=== PATIENT | female | born 1960 | race Caucasian/White ===

== ENCOUNTER 2022-09-21 17:22 | Outpatient (CLI) | payer BC, SELFPAY ==
--- NOTE | ~2022-09-21 | MM_ITS ---
EXAMINATION: MM screening stacy BI w lexus HISTORY: Screening TECHNIQUE: Craniocaudal and mediolateral oblique 3-D tomosynthesis images were obtained and synthetic 2-D images were generated. CAD analysis was submitted and interpreted. COMPARISON: No prior mammogram is available for comparison at this institution. BREAST PARENCHYMAL COMPOSITION: The breasts are extremely dense, which lowers the sensitivity of mamm ography FINDINGS: There is focal asymmetry in the upper outer quadrant of the right breast posteriorly. There are no suspicious masses, calcifications or architectural distortion in the left breast to suggest m alignancy. IMPRESSION: 1. Focal right breast asymmetry. 2. Additional spot compression and mediolateral views with possible follow-up breast ultrasound recom mended. BI-RADS Category 0: Incomplete: Needs additional imaging evaluation. Reviewed, dictated and finalized at location A. NSING DIRECTOR IMPRESSION: 1. Focal right breast asymmetry. 2. Additional spot compression and mediolateral views with possible follow-up b reast ultrasound recommended. BI-RADS Category 0: Incomplete: Needs additional imaging evaluation.
== END 2022-09-21 17:23 | disposition home or self-care (01) ==
PROVIDERS: Visit Provider Family Medicine
DX: Z12.31 Encounter for screening mammogram for malignant neoplasm of breast (principal); R92.8 Other abnormal and inconclusive findings on diagnostic imaging of breast
CPT/HCPCS: 77063; 77067

== ENCOUNTER 2022-11-11 11:20 | Outpatient (CLI) | payer OTHER, SELFPAY ==
--- NOTE | ~2022-11-11 | MMUS_ITS ---
EXAMINATION: MM diagnostic stacy RT w lexus, US breast RT limited HISTORY: Focal asymmetry of the right breast on screening mammogram TECHNIQUE: Additional 3-D tomosynthesis images of the right breast were performed and synthetic 2-D i mages were generated. CAD analysis was submitted and interpreted. High resolution limited right breas t ultrasound was performed. COMPARISON: 09/21/2022 BREAST PARENCHYMAL COMPOSITION: The breasts are heterogeneously dense, which may obscure small masses . FINDINGS: MAMMOGRAPHIC FINDINGS: With spot compression, the focal asymmetry of the posterior third of the upper outer quadrant of the left breast has an appearance consistent with an island of fibroglandular tissue. ULTRASOUND: There appears to be an island of normal fibroglandular tissue in the upper outer quadrant of the [address] in the area of concern on the mammogram. No suspicious cystic or solid mass is identified. IMPRESSION: 1. No mammographic or sonographic evidence of malignancy. 2. Recommend routine screening mammography in one year. BI-RADS Category 1: Negative Reviewed, dictated and finalized at location A. UME CUTTER IMPRESSION: 1. No mammographic or sonographic evidence of malignancy. 2. Recommend routine screening mammography in one year. BI-RADS Category 1: Negative
== END 2022-11-11 11:21 | disposition home or self-care (01) ==
PROVIDERS: Visit Provider Family Medicine
DX: R92.8 Other abnormal and inconclusive findings on diagnostic imaging of breast (principal)
CPT/HCPCS: 76642; 77061; 77065; G0279

== ENCOUNTER 2024-06-12 15:12 | Outpatient (CLI) | payer OTHER, SELFPAY ==
--- NOTE | ~2024-06-12 | MM_ITS ---
EXAMINATION: MM screening stacy BI w lexus HISTORY: Screening TECHNIQUE: Craniocaudal and mediolateral oblique 3-D tomosynthesis images were obtained and synthetic 2-D images were generated. CAD analysis was submitted and interpreted. COMPARISON: Comparison to multiple prior studies sequentially, with oldest reviewed study dated 09/07. BREAST PARENCHYMAL COMPOSITION: Dense: The breasts are extremely dense, which lowers the sensitivity of mammography. FINDINGS: There is no evidence of suspicious mass, calcification, or architectural distortion to sugg est malignancy in either breast. There has been no suspicious interval change. IMPRESSION: 1. No mammographic evidence of malignancy. 2. Recommend routine screening mammography in one year. BI-RADS Category 1: Negative Reviewed, dictated and finalized at location B.
--- NOTE | ~2024-06-12 | DEXA_ITS ---
Bone Density Report Name: ÁNGELA GRAF Age: 63 Sex: Female Ethnicity: White Date of : 1960 Indication: postmenopausal; screening for osteoporosis; height loss; history of glucocorticoids; Referring Provider: ELEN, MARIA D Bronson Study: Bone densitometry was performed. Exam Date: June 12, 2024 Accession number: [id number] Bone Density: Region BMD T-score Z-score Classification AP Spine(L1-L4) 0.716 -3.0 -1.3 Osteoporosis Femoral Neck (Left) 0.609 -2.2 -0.7 Osteopenia Total Hip (Left) 0.701 -2.0 -0.8 Osteopenia Femoral Neck (Right) 0.591 -2.3 -0.9 Osteopenia Total Hip (Right) 0.706 -1.9 -0.8 Osteopenia Total Hip Mean 0.704 -2.0 -0.8 Osteopenia World Health Organization criteria for BMD impression classify patients as: Normal (T-score at or above -1.0), Osteopenia (T-score between -1.0 and -2.5), or Osteoporosis (T-score at or below -2.5). 10-year Fracture Risk: FRAX not reported because: Some T-score for Spine Total or Hip Total or Femoral Neck at or below -2.5 Clinical Information Provided by Patient: Smokes Has taken Glucocorticoids Patient maximum height was 61.5 Menopause Age: 45 No regular weight bearing exercise Drinks caffeinated beverages Onset of menses at age 12 Number of children 3 Impression: The patient has osteoporosis, based on the Total Spine T-score. The patient has risk factors, including: smoking, history of glucocorticoid therapy. Discussion: INCREASED RISK OF FRACTURE. BONE DENSITY IS UNDESIRABLY LOW AT ONE OR MORE SKELETAL SITES, CONSISTENT WITH POSTMENOPAUSAL OSTEOPOROSIS. This patient's lowest T-score meets the World Health Organization's (WHO) criteria for osteoporosis at one or more sites (T-score -2.5 or below). In untreated patients, the risk of osteoporotic fracture increases approximately two-fold for each 1.0 SD decrease in T-score. Low bone density is not the only risk factor for fracture; also consider factors such as patient's age, frailty or poor health, risk of falling, risk of injury, previous osteoporotic fracture, family history of osteoporosis, cigarette smoking, low body weight, etc. Not everyone with low bone mineral density has osteoporosis; osteomalacia and other metabolic bone disorders should also be considered. Patients who have osteoporosis should be evaluated for specific diseases and conditions (secondary causes) that may cause or contribute to bone loss. The [place] Association of Clinical Endocrinologists (AACE) and National Osteoporosis Foundation (NOF) recommend pharmacologic intervention for all postmenopausal women whose T-score is in this range. The patient should follow a healthful lifestyle (good nutrition with adequate calcium and vitamin D, and appropriate weight-bearing exercise). Follow-Up: Consider a repeat BMD and Ve
== END 2024-06-12 15:13 | disposition home or self-care (01) ==
PROVIDERS: PCP Family Medicine; Visit Provider Family Medicine
DX: Z12.31 Encounter for screening mammogram for malignant neoplasm of breast (principal); Z78.0 Asymptomatic menopausal state; M81.0 Age-related osteoporosis without current pathological fracture; M85.852 Other specified disorders of bone density and structure, left thigh; M85.851 Other specified disorders of bone density and structure, right thigh
CPT/HCPCS: 77063; 77067; 77080

== ENCOUNTER 2025-07-02 08:11 | Outpatient (CLI) | payer OTHER, SELFPAY ==
--- NOTE | ~2025-07-02 | CT_ITS ---
EXAMINATION: CT soft tissue neck w con COMPARISON: None HISTORY: Dysphagia TECHNIQUE: Axial images were obtained with IV contrast. Sagittal, coronal reconstruction images were obtained from the axial views. Omnipaque 370, [address] scan performed using dose optimization techniques including the following automated exposure control; adjustment of mA and/or kV; use of iterative reconstruction technique. Automatic exposure control was used to reduce radiation dose. Permanent radiation dose record is archived to PACS. FINDINGS: Visualized brain parenchyma appears unremarkable. Optic globes unremarkable There is no asymmetry of the base of the tongue. There is no thickening of the prevertebral space. There is asymmetry of the aryepiglottic folds. The vocal cords No thyroid nodules. No lymphadenopathy in the anterior superior mediastinum. There is no thickening of the visualized esophagus The parapharyngeal spaces and tonsillar tissue appear unremarkable Parotid glands are unremarkable. Submandibular glands are unremarkable There is no jugulodigastric, posterior cervical or supraclavicular lymphadenopathy. The lung bases are unremarkable No sclerotic or lytic lesions. No significant sinusitis The soft tissues appear unremarkable IMPRESSION: 1. No etiology to explain the patient's symptoms Reviewed, dictated and finalized at location A.
--- OUTSIDE RECORDS SUMMARY | 2025-07-02 08:18 | XMS_ITS | Clinical Summary ---
Author Organization [facility] Address [address] [facility] [place] [address] Care Team Providers Care Instructional Paraprofessional Name Role Phone Unavailable Primary Care Provider Unavailabl e Source Comments [facility] Affiliates and Associated Physician Practices is amultiple site organization consisting of ambulatory clinics and hospital sitesin [place], [place], [place] and [place]. This disclosure is being madepursuant to the Care Everywhere program and may not contain all information available regarding this patient. Last updated 18.[facility] Social History Tobacco Use Types Packs/Day Years Used Date Smoking Tobacco: Never Assessed Comments Unknown Sex and Gender Information Value Date Recorded Sex Assigned at Not on file Legal Sex Female 2:29 PM CDT Gender Identity Not on file Sexual Orientation Not on file Plan of Treatment Health Maintenance Due Date Last Done Comments COLOGUARD (AGES 45-75) - COL ON CA SCREENING 1960 COLON MONITORING 1960 COLONOSCOPY - COLON CA SCREENING 1960 CT COLONOGRAPHY - COLON CA SCREENING 1960 Colorectal Cancer Screening 1960 FIT - COLON CA SCREENING 1960 FLEX SIG - COLON CA SCREENING 1960 LIPID TESTING 1960 MAMMOGRAM 1960 HIV SCREENING 1975 HEPATITIS C SCREENING 09/12/1978 DTAP/TDAP/TD VACCINES (1 - Tdap) 1979 PAP SMEAR 1981 PNEUMOCOCCAL VACCINE 50+ (1 of 1 - PCV) 2010 ZOSTER VACCINE (1 of 2) 2010 COVID-19 VACCINE ( - 2023-2 5 season) 2024 DEPRESSION SCREENING 11/07/2024 INFLUENZA VACCINE (#1) 2025 Respiratory Syncytial Virus (RSV) Vaccine Pt: or over 60 yrs (1 - 1-dose 75+ series) 2035 HEPATITIS B VACCINE Aged Out No longe r eligible based on patient's age to complete this topic HIB VACCINE Aged Out No longer eligi ble based on patient's age to complete this topic HPV VACCINE Aged Out No longer eligi ble based on patient's age to complete this topic MENINGOCOCCAL (Group B) VACC INE SHARED DECISION-MAKING Aged Out No longer eligibl e based on patient's age to complete this topic MENINGOCOCCAL GROUPS A/C/Y/W VACCINE Aged Out No longer eligible b ased on patient's age to complete this topic Insurance [facility]
--- OUTSIDE RECORDS SUMMARY | 2025-07-02 08:18 | XMS_ITS | Encounter Summary ---
Author Organization [facility] Address [address] [place] [address] Care Team Providers Care Assessment Consultant Name Role Phone Unavailable Primary Care Provider Unavailabl e Encounter Details Date Type Department Care Team (Late st Contact Info) Description 03/06/2024 Lab Requisition [facility] - DermPath Lab [address] [facility] [address] [facility] [address] [place] [place] [address] Baylee Caldera MD [address] [facility] [address] [place] [address] Social History Tobacco Use Types Packs/Day Years Used Date Smoking Tobacco: Never Assessed Comments Unknown Sex and Gender Information Value Date Recorded Sex Assigned at Not on file Legal Sex Female 2:29 PM CDT Gender Identity Not on file Sexual Orientation Not on file documented as of this encounter Plan of Treatment Not on file documented as of this encounter Procedures Procedure Name Priority Date/Time Associated Diagnosis Comments DERMATOPATHOLOGY Routine 03/06/2024 2:12 PM CDT documented in this encounter Results * DERMATOPATHOLOGY (03/06/2024 2:12 PM CDT) Case Report Dermatopathology Report Case: [id number] Authorizing Provider: Baylee Caldera MD Collected: 03/06/2024 02:12 PM Ordering Location: [facility] Physician [facility] - Received: 03/07/2024 12:19 PM DermPath Lab Pathologist: Bceka Covarrubias MD Specimen: Skin, left abdomen 12:05 PM CDT DERMATOPATHOLOGY LABORATORY Final Diagnosis Specimen A. SKIN, left abdomen: LENTIGINOUS MELANOCYTIC NEVUS, JUNCTIONAL TYPE, IRRITATED (D22.5) (see microscopic description) 12:05 PM CDT DERMATOPATHOLOGY LABORATORY at 1205 CDT Clinical History R/o MM 4 12:05 PM T DERMATOPATHOLOGY LABORATORY Gross Description Specimen A: Received is one formalin filled container labeled with the patient's name and designated left abdomen. The specimen consists of a shave biopsy measuring 4x2x1 mm. Jar 0. 4 12:05 PM T DERMATOPATHOLOGY LABORATORY Microscopic Description Specimen A. SKIN, left abdomen: This is a junctional nevus. There is melanin pigment in the stratum corneum. There is a lentiginous proliferation of melanocytes between nests of cells along the dermal-epidermal junction, highlighted by MART-1/Melan-A immunohistochemical staining. There is underlying fibroplasia of the papillary dermis. Original and deeper sections were reviewed. (Junctional Anders's Nevus) 4 12:05 PM T DERMATOPATHOLOGY LABORATORY Disclaimer An external and internal positive and negative controls are appropriate for the histochemical, immunohistochemical and immunofluorescence stain(s) in this case (if any), except where stated explicitly. The performance characteristics of the stain(s) cited in this report were developed and its performance characteristic determined by the Dermatopathology Laboratory at [facility], directed by Dr. Gigi Ambrosio. These tests need not be, and therefore are not, approved by the [place] Food and Drug Administration. The tests are used for clinical purposes. Billing Codes Specimen Charges Stain Charges 22474 1 54243 1 4 12:05 PM CDT DERMATOPATHOLOGY LABORATORY Embedded Images 4 12:05 PM CDT DERMATOPATHOLOGY LABORATORY Pathology/Cytolo gy TISSUE SPECIMEN FROM SKIN / Unknown 03/06/2024 2:12 PM CDT 03/07/2024 12:19 PM CDT us Baylee Caldera MD LAB - PATHOLOGY/CYTOLOGY OR DERABLES Final Result DERMATOPATHOLOGY LABORATORY [facility] - Department of Dermatology [address], [address] [phone] documented in this encounter Visit Diagnoses Not on filedocumented in this encounter
--- OUTSIDE RECORDS SUMMARY | 2025-07-02 08:18 | XMS_ITS | Patient Health Record ---
Author Organization [facility] Address [address] [place] [address] Care Team Providers Care Liability Claims Examiner Name Role Phone Elias Coombs Primary Care Provider [phone] Reason For Referral No Information Immunizations Vaccine Route Administration Date Status Comme nts COVID-19 Moderna 1ST IM Intramuscular 12/18/2020 Administered EUA date 0. Screening reviewed and consent signed. Patient tolerated well. COVID-19 Moderna 2nd IM Intramuscular 01/15/2021 Administered EUA given. Celia ent tolerated well. Plan Of Treatment No Information
[2025-07-02 08:37] LABS: Estimated Glomerular Filt Rate > 60
== END 2025-07-02 08:12 | disposition home or self-care (01) ==
PROVIDERS: PCP Nurse Practitioner Family; Visit Provider Nurse Practitioner Family
DX: R13.10 Dysphagia, unspecified (principal); J39.2 Other diseases of pharynx
CPT/HCPCS: 70491; Q9967

== ENCOUNTER 2025-08-12 00:53 | Day surgery (SDC) | payer OTHER, SELFPAY ==
[2025-07-30 10:03] VITALS: BMI 20.8
--- OUTSIDE RECORDS SUMMARY | 2025-08-12 00:57 | XMS_ITS | Patient Health Record ---
Author Organization [facility] Address [address] [place] [address] Care Team Providers Care Industrial Organizational Psychologist Name Role Phone Elias Coombs Primary Care Provider Reason For Referral No Information Immunizations Vaccine Route Administration Date Status Comme nts COVID-19 Moderna 1ST IM Intramuscular 12/18/2020 Administered EUA date 0. Screening reviewed and consent signed. Patient tolerated well. COVID-19 Moderna 2nd IM Intramuscular 01/15/2021 Administered EUA given. Celia ent tolerated well. Plan Of Treatment No Information
--- OUTSIDE RECORDS SUMMARY | 2025-08-12 00:57 | XMS_ITS | Encounter Summary ---
Author Organization [facility] Address [address] [place] [address] Care Team Providers Care Straw Hat Brim Cutter Operator Name Role Phone Unavailable Primary Care Provider Unavailabl e Encounter Details Date Type Department Care Team (Late st Contact Info) Description 03/06/2024 Lab Requisition [facility] - DermPath Lab [address] [facility] [place] [address] Baylee Caldera MD [address] [facility] [address] DEPT [place] [address] Social History Tobacco Use Types Packs/Day Years [...] PM CDT) Case Report Dermatopathology Report Case: [id number] Authorizing Provider: Baylee Caldera MD Collected: 03/06/2024 02:12 PM Ordering Location: [facility] Physician [facility] - Received: 03/07/2024 12:19 PM DermPath Lab Pathologist: Becka Covarrubias MD Specimen: Skin, left abdomen 12:05 [...] characteristic determined by the Dermatopathology Laboratory at [facility], directed by Dr. Gigi Ambrosio. These tests need not be, and therefore are not, approved by the [place] Food and Drug Administration. The tests are used for clinical purposes. Billing Codes Specimen Charges Stain Charges 49576 1 [id number] 1 4 12:05 PM CDT DERMATOPATHOLOGY LABORATORY Embedded Images 4 12:05 PM CDT DERMATOPATHOLOGY LABORATORY Pathology/Cytolo gy TISSUE SPECIMEN FROM SKIN / Unknown 03/06/2024 2:12 PM CDT 03/07/2024 12:19 PM CDT us Baylee Caldera MD LAB - PATHOLOGY/CYTOLOGY OR DERABLES Final Result DERMATOPATHOLOGY LABORATORY [facility] - Department of Dermatology [address] [phone] documented in this encounter Visit Diagnoses Not on filedocumented in this encounter
--- OUTSIDE RECORDS SUMMARY | 2025-08-12 00:58 | XMS_ITS | Data Portability ---
Author Organization RICARDO BERTTianna Yang Address [address] [place] [address] Assessment No assessment recorded. Plan of Treatment Reminders Order Date Submit Date Provider Last Modified By Organization Details Last Modified Time Details Appointments None recorded . Lab CMP, serum or plasma 2017 018 DIANNA ELIZABETH, [address] [place], [place] [address]david Vicente, [address], [place], [address], 8 06:19:49 lipid panel, serum 2017 018 DIANNA [facility], [address] [place], [place] [address]lily Jules, [address], [place], [address], 8 06:19:49 CMP, serum or plasma 2014 015 DIANNA [facility], [address] [place], [place] [address]lily Jules, [address], [place], [address], 6 12:14:30 CBC 2014 015 DIANNA [facility], [address] [place], [place] [address]lily Jules, [address], [place], [address], 6 12:14:29 lipid panel, serum 2014 015 DIANNA [facility], [address] [place], [place] [address]lily Jules, [address], [place], [address], 6 12:14:28 TSH + free T4, serum 2014 015 [facility], [address] [facility] [address], [address], [place], [address], 5 16:33:33 vitamin D, 25-hydro xy, total, serum 2014 015 [facility], [address] [facility], [address], [place], [address], 5 16:33:34 Referral dermatol ogist referral - Pigmente d left ear lesion 2015 016 DIANNA Dali Taylor, [address] , [facility] [address], [place], [address], 6 13:54:[address] referral - colon ca screen/ fm hx colon polyps 2014 016 DIANNA Not available 6 13:33:19 Procedures None recorded . Surgeries None recorded . Imaging LDCT, chest, for lung cancer screenin g 2017 018 [facility] ([facility]), [address] [place], [address], 8 18:15:07 bone density study - screenin g 2014 015 [facility] ([facility]), [address] [place], [address], 5 09:27:20 mammogra m, screenin g 2014 015 [facility] ([facility]), [address] [place], [address], 5 09:27:20 Medication Orders bupropio n HCl SR 150 mg tablet,1 2 hr sustaine d-releas e 2017 018 INTERFACE Not available 8 16:43:25 nicotine 21 mg/24 hr daily transder mal patch 2017 018 INTERFACE Not available 8 16:43:24 ranitidi ne 150 mg tablet 2017 018 INTERFACE [facility], [address] [place], [address], 8 17:54:03 Chantix Starting Month Box 0.5 mg (11)-1 mg (42) tablets in dose pack 2017 018 INTERFACE [facility], [address] [place], [address], 8 17:54:07 Lexapro 10 mg tablet 2015 016 INTERFACE [facility][id number], [address], [place], [place], [id number], 6 15:07:37 zolpidem 10 mg tablet 2015 016 [email or web address] [facility] #[id number], [address], [place], [place], [id number], 6 15:04:28 ergocalc iferol (vitamin D2) 1,250 mcg (50,000 unit) capsule 2015 016 [email or web address] Not available 6 14:15:47 Lexapro 10 mg tablet 2015 016 [email or web address] Not available 6 13:05:45 zolpidem 5 mg tablet 2015 016 Not available 6 13:05:45 trazodon e 50 mg tablet 2014 015 [email or web address] Not available 6 14:15:47 simvasta tin 20 mg tablet 2014 015 INTERFACE Not available 5 15:46:38 simvasta tin 20 mg tablet 2014 015 INTERFACE Not available 5 15:45:56 Lexapro 10 mg tablet 2014 015 INTERFACE Not available 5 15:46:39 Patient TargetsNo targets recorded. Patient InstructionsNo instructions recorded. Reason for Referral colon ca screen/ fm hx colon polyps Referring Physician: Suzi Romero, Internal Medicine, Encounter Date: 10/08/2015 Trauma Nurse Referral for P igmented skin lesion Pigmented left ear lesion Pigmented left ear lesion Referring Physician: Suzi Romero, Internal Medicine, Encounter Date: 12/23/2015 Results Created Date Observation Date Name Description Value Unit Range Abnormal Flag Note LastModifiedBy Organization Detail LastModifiedTime 11/27/19 16 11/28/2015 lipid panel , serum cholesterol, total 163 mg/dL 125-20 0 normal Not Available [facility] [address] [address] [place], [address], 11/28/2015 11:24:15 11/27/19 16 11/28/2015 lipid panel , serum HDL cholesterol 47 mg/dL > or = 46 normal Not Available [facility] [address] [address] [place], [address], 11/28/2015 11:24:15 11/27/19 16 11/28/2015 lipid panel , serum triglyceride s 98 mg/dL <150 normal Not Available [facility] [address] [address] [place], [address], 11/28/2015 11:24:15 11/27/19 16 11/28/2015 lipid panel , serum LDL-choleste rol 96 mg/dL _(mark c) <130 normal Madie able range <100 mg/dL for patie nts with CHD or diabe preston and <70 mg/dL for diabe tic patie nts with known heart disea se. Not Available [facility] [address] [place], [address], 11/28/2015 11:24:15 11/27/19 16 11/28/2015 lipid panel , serum chol/HDLC ratio 3.5 (calc ) < or = 5.0 normal Not Available [address] [address] [place], [address], 11/28/2015 11:24:15 11/27/19 16 11/28/2015 lipid panel , serum non HDL cholesterol 116 mg/dL _(mark c) normal Targe t for non-H DL saqib stero l is 30 mg/dL highe r than LDL saqib stero l targe t. Not Available [address] [address] [address], [place], [address], 11/28/2015 11:24:15 11/27/1911/28/2015 CMP, serum or plasm a glucose 100 mg/dL 65-99 high Fasti ng refer ence inter dulce maria Not Available [address] [address] [place], [address], 11/28/2015 11:24:15 11/27/19 16 11/28/2015 CMP, serum or plasm a urea nitrogen (BUN) 12 mg/dL 7-25 normal Not Available [facility] [address] [address] [place], [address], 11/28/2015 11:24:15 11/27/19 16 11/28/2015 CMP, serum or plasm a creatinine 0.74 mg/dL 0.50-1 .05 normal For patie nts >49 years of age, the refer ence limit for Creat inine is appro ximat min 13% highe r for peopl e ident ified as Afric an-Am april n. Not Available [facility] [address] [address] [place], [address], 11/28/2015 11:24:15 11/27/1911/28/2015 CMP, serum or plasm a eGFR non-afr. tajik 91 mL/mi n/1.7 3m2 > or = 60 normal Not Available [employer] [facility] [address] [address] [place], [address], 11/28/2015 11:24:15 11/27/19 16 11/28/2015 CMP, serum or plasm a eGFR 106 mL/mi n/1.7 3m2 > or = 60 normal Not Available [address], [address], 11/28/2015 11:24:15 11/27/19 16 11/28/2015 CMP, serum or plasm a BUN/creatini ne ratio NOT APPLIC ABLE (calc ) 6-22 Not Available [address], [address], 11/28/2015 11:24:15 11/27/19 16 11/28/2015 CMP, serum or plasm a sodium 137 mmol/ L 135-14 6 normal Not Available [address], [address], 11/28/2015 11:24:15 11/27/19 16 11/28/2015 CMP, serum or plasm a potassium 4.3 mmol/ L 3.5-5. 3 normal Not Available [address], [address], 11/28/2015 11:24:15 11/27/19 16 11/28/2015 CMP, serum or plasm a chloride 105 mmol/ L 98-110 normal Not Available [address], [address], 11/28/2015 11:24:15 11/27/19 16 11/28/2015 CMP, serum or plasm a carbon dioxide 25 mmol/ L 19-30 normal Not Available [address], [address], 11/28/2015 11:24:15 11/27/19 16 11/28/2015 CMP, serum or plasm a calcium 9.4 mg/dL 8.6-10 .4 normal Not Available [employer] [address], [address], 11/28/2015 11:24:15 11/27/19 16 11/28/2015 CMP, serum or plasm a protein, total 6.8 g/dL 6.1-8. 1 normal Not Available [address], [address], 11/28/2015 11:24:15 11/27/19 16 11/28/2015 CMP, serum or plasm a albumin 4.5 g/dL 3.6-5. 1 normal Not Available [address], [address], 11/28/2015 11:24:15 11/27/19 16 11/28/2015 CMP, serum or plasm a globulin 2.3 g/dL_ (calc ) 1.9-3. 7 normal Not Available [address], [address], 11/28/2015 11:24:15 11/27/19 16 11/28/2015 CMP, serum or plasm a albumin/glob ulin ratio 2.0 (calc ) 1.0-2. 5 normal Not Available [address], [address], 11/28/2015 11:24:15 11/27/19 16 11/28/2015 CMP, serum or plasm a bilirubin, total 0.4 mg/dL 0.2-1. 2 normal Not Available [address], [address], 11/28/2015 11:24:15 11/27/19 16 11/28/2015 CMP, serum or plasm a alkaline phosphatase 69 U/L 33-130 normal Not Available [facility] [employer] [address], [address], 11/28/2015 11:24:15 11/27/19 16 11/28/2015 CMP, serum or plasm a AST 18 U/L 10-35 normal Not Available [address], [address], 11/28/2015 11:24:15 11/27/19 16 11/28/2015 CMP, serum or plasm a ALT 12 U/L 6-29 normal Not Available [address], [address], 11/28/2015 11:24:15 11/27/19 16 11/28/2015 CBC white blood cell count 10.2 thous and/u L 3.8-10 .8 normal Not Available [address], [address], 11/28/2015 11:24:15 11/27/19 16 11/28/2015 CBC red blood cell count 3.74 césar on/uL 3.80-5 .10 low Not Available [address], [address], 11/28/2015 11:24:15 11/27/19 16 11/28/2015 CBC hemoglobin 12.2 g/dL 11.7-1 5.5 normal Not Available [address], [address], 11/28/2015 11:24:15 11/27/19 16 11/28/2015 CBC hematocrit 37.1 % 35.0-4 5.0 normal Not Available [address], [address], 11/28/2015 11:24:15 11/27/19 16 11/28/2015 CBC MCV 99.1 fL 80.0-1 00.0 normal Not Available [address], [address], 11/28/2015 11:24:15 11/27/19 16 11/28/2015 CBC MCH 32.7 pg 27.0-3 3.0 normal Not Available [address], [address], 11/28/2015 11:24:15 11/27/19 16 11/28/2015 CBC MCHC 33.0 g/dL 32.0-3 6.0 normal Not Available [address], [address], 11/28/2015 11:24:15 11/27/19 16 11/28/2015 CBC RDW 13.7 % 11.0-1 5.0 normal Not Available [address], [address], 11/28/2015 11:24:15 11/27/19 16 11/28/2015 CBC platelet count 324 thous and/u L 140-40 0 normal Not Available [address], [address], 11/28/2015 11:24:15 11/27/19 16 11/28/2015 T4, free, serum T4, free 1.1 NG/dL 0.8-1. 8 normal Not Available [address], [address], 11/28/2015 11:24:15 11/27/19 16 11/28/2015 TSH, serum or plasm a TSH 0.55 mIU/L normal Refer ence Range > or = 20 Years 0.40- 4.50 Pregn stacie Range s First trime ster 0.26- 2.66 Secon d trime ster 0.55- 2.73 Third trime ster 0.43- 2.91 Not Available [address], [address], 11/28/2015 11:24:16 11/27/19 16 11/28/2015 vitam in D, 25-hy droxy , total , serum vitamin D,25-oh,tota l,ia 13 NG/mL 30-100 low Vitam in D Statu s 25-OH Vitam in D: Defic iency : <20 ng/mL Insuf ficie ncy: 20 - 29 ng/mL Optim al: > or = 30 ng/mL For 25-OH Vitam in D testi ng on patie nts on D2-lin pplem entat ion and patie nts for whom quant itati on of D2 and D3 fract ions is requi red, the [employer] Assur eD(TM ) 25-OH VIT D, (D2,D 3), LC/MS /MS is recom elly d: order code 67737 (wesley ents >2yrs ). For more infor toñito guaman on this test, go to: http: //[facility] patsy jackson stdia gnost ics.c om/fa q/FAQ 163 (This link is being provi ded for infor toñito nal/e ducat ional purpo ses only. ) Not Available [facility] [address] [place], [address], 11/28/2015 11:24:16 06/15/20 18 06/16/2018 CMP, serum or plasm a glucose 102 mg/dL 65-99 above high normal Not Available [facility] ([facility]) [address] [place], [address], 06/16/2018 06:19:49 06/15/2006/16/2018 CMP, serum or plasm a BUN 12 mg/dL 6-24 Not Available [facility] ([facility]) [address] [place], [address], 06/16/2018 06:19:49 06/15/2006/16/2018 CMP, serum or plasm a creatinine 0.77 mg/dL 0.57-1 .00 Not Available [facility] ([facility]) [address] [place], [address], 06/16/2018 06:19:49 06/15/2006/16/2018 CMP, serum or plasm a eGFR if nonafricn AM 86 mL/mi n/1.7 3 >59 Not Available [facility] ([facility]) [address] [place], [address], 06/16/2018 06:19:49 06/15/2006/16/2018 CMP, serum or plasm a eGFR if africn AM 99 mL/mi n/1.7 3 >59 Not Available [facility] ([facility]) [address] [facility] [place], [address], 06/16/2018 06:19:49 06/15/20 18 06/16/2018 CMP, serum or plasm a BUN/creatini ne ratio 16 9-23 Not Available [facility] ([facility]) [address] [facility] [place], [address], 06/16/2018 06:19:49 06/15/20 18 06/16/2018 CMP, serum or plasm a sodium 141 mmol/ L 134-14 4 Not Available [facility] ([facility]) [address] [facility] [place], [address], 06/16/2018 06:19:49 06/15/20 18 06/16/2018 CMP, serum or plasm a potassium 4.6 mmol/ L 3.5-5. 2 Not Available [facility] ([facility]) [address] [facility] [place], [address], 06/16/2018 06:19:49 06/15/20 18 06/16/2018 CMP, serum or plasm a chloride 105 mmol/ L 96-106 Not Available [facility] ([facility]) [address] [facility] [place], [address], 06/16/2018 06:19:49 06/15/2006/16/2018 CMP, serum or plasm a carbon dioxide, total 23 mmol/ L 20-29 Not Available [facility] ([facility]) [address] [facility] [place], [address], 06/16/2018 06:19:49 06/15/2006/16/2018 CMP, serum or plasm a calcium 9.8 mg/dL 8.7-10 .2 Not Available [facility] ([facility]) [address] [facility] [place], [address], 06/16/2018 06:19:49 06/15/20 18 06/16/2018 CMP, serum or plasm a protein, total 7.0 g/dL 6.0-8. 5 Not Available [facility] ([facility]) [address] [facility] [place], [address], 06/16/2018 06:19:49 06/15/2006/16/2018 CMP, serum or plasm a albumin 4.6 g/dL 3.5-5. 5 Not Available [facility] ([facility]) [address] [facility] [place], [address], 06/16/2018 06:19:49 06/15/2006/16/2018 CMP, serum or plasm a globulin, total 2.4 g/dL 1.5-4. 5 Not Available [facility] ([facility]) [address] [place], [address], 06/16/2018 06:19:49 06/15/2006/16/2018 CMP, serum or plasm a A/G ratio 1.9 1.2-2. 2 Not Available [facility] ([facility]) [address] [place], [address], 06/16/2018 06:19:49 06/15/20 18 06/16/2018 CMP, serum or plasm a bilirubin, total 0.2 mg/dL 0.0-1. 2 Not Available [facility] ([facility]) [address] [place], [address], 06/16/2018 06:19:49 06/15/2006/16/2018 CMP, serum or plasm a alkaline phosphatase 75 IU/L 39-117 Not Available [facility]) [address] [place], [address], 06/16/2018 06:19:49 06/15/2006/16/2018 CMP, serum or plasm a AST (SGOT) 12 IU/L 0-40 Not Available [facility] ([facility]) [address] [place], [place], [address], 06/16/2018 06:19:49 06/15/20 18 06/16/2018 CMP, serum or plasm a ALT (SGPT) 9 IU/L 0-32 Not Available [facility] ([facility]) [address] [facility] [place], [address], 06/16/2018 06:19:49 06/15/20 18 06/16/2018 lipid panel , serum cholesterol, total 199 mg/dL 100-19 9 Not Available [facility] ([facility]) [address] [facility] [place], [address], 06/16/2018 06:19:49 06/15/20 18 06/16/2018 lipid panel , serum triglyceride s 88 mg/dL 0-149 Not Available [facility] ([facility]) [address] [facility] [place], [address], 06/16/2018 06:19:49 06/15/20 18 06/16/2018 lipid panel , serum HDL cholesterol 53 mg/dL >39 Not Available [facility]) [address] [facility], [place], [address], 06/16/2018 06:19:49 06/15/20 18 06/16/2018 lipid panel , serum VLDL cholesterol mark 18 mg/dL 5-40 Not Available [facility] ([facility]) [address] [facility] [place], [address], 06/16/2018 06:19:49 06/15/2006/16/2018 lipid panel , serum LDL cholesterol calc 128 mg/dL 0-99 above high normal Not Available [facility] ([facility]) [address] [facility] [place], [address], 06/16/2018 06:19:49 06/15/20 18 06/16/2018 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 2 LDL/H DL Ratio Men Women 1/2 Avg.R isk 1.0 1.5 Avg.R isk 3.6 3.2 2X Avg.R isk 6.2 5.0 3X Avg.R isk 8.0 6.1 Not Available [facility] ([facility]) [address] [facility], [place], [address], 06/16/2018 06:19:49 03/04/20 16 02/19/2016 mammo gram, izabella mitchell No observ ation record ed. [email or web address] [facility] [address] [place], [address], 04/20/2016 15:03:07 07/05/20 18 07/05/2018 LDCT, chest , for lung cance r izabella mitchell No observ ation record ed. [facility] [address] [place], [address], 07/11/2018 10:26:50 Result Notes None recorded. Problems Name Problem SNOMED Code Status Onset Date Resolution Date Notes Provider Name and Address Organization Details Recorded Time Abdominal pain 23236612 Active Dari Weaver MA null, [place] - [facility] 5 14:41:11 Hyperlipidemia 16781725 Active Suzi Romero MD Attn: Jordan carpio,[address] [facility], [place], [address], [facility] 5 15:45:17 Pigmented skin lesion 577426906 Active Suzi Romero MD Attn: Jordan carpio,[address] [facility], [place], [address], [facility] 6 13:05:45 Depressive disorder 73296376 Dolores Romero MD Attn: Jordan carpio[address] [facility], [place], [address], [place] [facility] 6 15:04:28 Sleep disorder 77454355 Active Suzi Romero MD Attn: Jordan carpio,[address] [facility], [place], [address], [place] [facility] 6 15:04:28 Stress 07871840 Active Suzi Romero MD Attn: Jordan carpio,[address] [facility], [place], [address], [place] [facility] 5 15:45:17 Anxiety disorder 348742604 Active Suzi Romero MD Attn: Jordan carpio,[address] [facility], [place], [address], [place] [facility] 5 15:45:17 Vitamin D deficiency 21449932 Active Suzi Romero MD Attn: Jordan carpio,[address] [place], [address], [place] [facility] 6 15:04:28 Gastroesophage al reflux disease without esophagitis 009342900 Active 2017 Suzi Romero MD Attn: Jordan carpio,[address] [place], [address], [place] [facility] 8 17:46:19 History of smoking Active 2017 Suzi Romero MD Attn: Jordan carpio,[address] [place], [address], [place] [facility] 8 17:46:43 Screening for malignant neoplasm of respiratory tract Active 2017 Suzi Romero MD Attn: Jordan carpio,[address] [place], [address], [place] [facility] 8 17:51:00 Chronic obstructive pulmonary disease 73529197 Active 2017 Suzi Romero MD Attn: Jordan carpio,[address] [place], [address], [place] [facility] 8 16:34:48 Problem Notes None recorded. Procedures Surgical History Date Name Laterality Status Provider Name and Address Organization Details Recorded Time Caesarean Section completed Reyes Ramirez MA [facility] 12/23/2015 12:36:03 Imaging Results None recorded. Procedure Notes None recorded. Medical Equipment None Reported. Allergies No known drug allergies Medications Name Sig Start Date Stop Date Status Note LastModified by Organization Details LastModified Time bupropion HCl SR 150 mg tablet,12 hr sustained- release Take 1 tablet twice a day by oral route. 2017 active Not Available Not Available Not Avai lable trazodone 50 mg tablet Take 1 tablet every day by oral route at bedtime. 2014 active Not Available Not Available Not Avai lable simvastati n 20 mg tablet TAKE 1 TABLET DAILY 2015 active NOV scheduled for 07/20/2016 Not Available Not Available Not Available ranitidine 150 mg tablet TAKE 1 TABLET BY MOUTH TWICE DAILY active Not Available Not Available No t Available nicotine 21 mg/24 hr daily transderma l patch Apply 1 patch every day by transderm al route. 2017 active Not Available Not Available Not Avai lable zolpidem 5 mg tablet Take 1 tablet every day by oral route. 2015 active Not Available Not Available Not Avai lable ergocalcif royce (vitamin D2) 1,250 mcg (50,000 unit) capsule Take 1 capsule every week by oral route. 2015 active Not Available Not Available Not Avai lable zolpidem 10 mg tablet Take 1 tablet every day by oral route. 2015 active Not Available Not Available Not Avai lable escitalopr am 10 mg tablet TAKE 1 TABLET DAILY 2015 active NOV scheduled for 6 Not Available Not Available Not Available Chantix Starting Month Box 0.5 mg (11)-1 mg (42) tablets in dose pack USE DIRECTED active Not Available Not Available No t Available Vitals Date Recorded Body mass index (BMI) Heart rate Body temperature Body height Body weight Systolic And Diastolic Provider Name and Address Organization Details Last Updated DateTime 6 22.9 kg/m2 76 /min 98.2 [degF] 154.94 cm 19103.6 7677 g 100/60 mm[Hg] Reyes guidry MA [facility] 6 12:36:03 Date Recorded Body height Body mass index (BMI) Body weight Body temperature Oxygen saturation Oxygen saturation in Arterial blood by Pulse oximetry Heart rate Systolic And Diastolic Provider Name and Address Organization Details Last Updated DateTime 8 154.94 cm 22.5 kg/m2 82579.4 9 g 97.9 [degF] 95 % 95 % 67 /min 116/74 mm[Hg] Carla Hernandez MA [facility] 8 17:10:25 Date Recorded Body weight Body temperature Body mass index (BMI) Body height Systolic And Diastolic Provider Name and Address Organization Details Last Updated DateTime 04/20/2016 04720.49 203 g 98 [degF] 22.5 kg/m2 154.94 cm 102/70 mm[Hg] Carla Sigala MA [facility] 6 14:15:47 Date Recorded Body height Body mass index (BMI) Body weight Heart rate Body temperature Oxygen saturation Oxygen saturation in Arterial blood by Pulse oximetry Systolic And Diastolic Provider Name and Address Organization Details Last Updated DateTime 8 154.94 cm 21 kg/m2 06828.7 5 g 76 /min 98 [degF] 96 % 96 % 124/80 mm[Hg] Carla Hernandez MA [facility] 8 16:14:10 Date Recorded Respiratory rate Body weight Body height Body temperature Heart rate Body mass index (BMI) Systolic And Diastolic Provider Name and Address Organization Details Last Updated DateTime 5 18 /min 78368.8 09749 g 154.94 cm 98.7 [degF] 76 /min 21.9 kg/m2 118/68 mm[Hg] Dari Weaver MA [facility] 5 14:41:11 Social History Question Answer Notes LastModified by Organizat ion Details LastModified Time Tobacco Smoking Status Current Every Day Smoker Carla Hernandez MA null, [facility] 04/04/2018 17:08:54 What Is Your Level Of Caffeine Consumption? Heavy Information not available 10/08/2015 How Much Tobacco Do You Chew? None Information not available 10/08/2015 What Type Of Diet Are You Following? REGULAR Information not available 10/08/2015 Which Illicit Or Recreational Drugs Have You Used? None Information not available 10/08/2015 Are There Any Guns Present In Your Home? Yes Information not available 10/08/2015 Hard Of Hearing Or Deaf In One Or Both Ears? No Information not available 10/08/2015 Legally Blind In One Or Both Eyes? No Information no t available 10/08/2015 Live Alone Or With Others? With Others Information not available 10/08/2015 What Was The Date Of Your Most Recent Tobacco Screening? 07/11/2018 Information not available 05/31/2019 How Many Children Do You Have? 3 Information not available 10/08/2015 Seat Belts Used Routinely Yes Information not available 10/08/2015 Smoke Alarm In Home Yes Information not available 10/08/2015 Are You Passively Exposed To Smoke? Yes Information no t available 10/08/2015 How Much Tobacco Do You Smoke? 2 PPD [email or web address] Information not available 04/04/2018 General Stress Level High Information not available 10/08/2015 Do You Use Sunscreen Routinely? Yes Information not available 10/08/2015 Sex: Unknown Functional Status Question Answer Note LastModified by Organization D etails LastModified Time What is your level of alcohol consumption? None Information not available 10/08/2015 Are you currently employed? Yes Information not available 10/08/2015 Are you able to care for yourself independently? Yes Information not available 10/08/2015 Mental Status None recorded. Family History Relationship Description Onset Age of this Age Resolved Age Notes LastModified by Organization Details LastModified Time Mother Disorder of thyroid gland [email or web address] Not available 12/08 12:36:03 Mother Hypertensive disorder [email or web address] Not available 12/08 12:36:03 Mother Hypercholest erolemia [email or web address] Not available 12/08 12:36:03 Father Kidney disease [email or web address] Not available 12/08 12:36:03 Father Chronic obstructive pulmonary disease [email or web address] Not available 12/08 12:36:03 Sister Asthma [email or web address] Not availabl e 12/23/2015 12:36:03 Sister Diabetes mellitus [email or web address] Not available 12/08 12:36:03 Sister Chronic obstructive pulmonary disease [email or web address] Not available 12/08 12:36:03 Brother Depressive disorder [email or web address] Not available 12/08 12:36:03 Brother Kidney disease [email or web address] Not available 12/08 12:36:03 Maternal Grandmother Suicide 61 by drinki ng acid [email or web address] Not available 12/23/2015 12:36:03 Medical History Condition Response Coronary Artery Disease N Other N High Blood Pressure N Atrial Fibrillation N Thyroid Problems N Kidney or Bladder Problems N GI Problems N Depression N COPD N Blood Clots N Skin Problems N Anemia N Heart Attack (MT) N Anxiety Disorder N Diabetes N Muscle, Joint, or Bone Problems N Seizures/Epilepsy N Acid Reflux (GERD) N Cancer N Stroke N Asthma N Allergies N High Cholesterol Y Hepatitis N Liver Disease N Headaches N Osteoporosis N Heart Failure N Gynecological HistoryNo gynecological history recorded. Obstetrics History GPAL:G 0 P 0 0 0 0 Past Encounters Encounter ID Performer Location Encounter Start Date Encounter Closed Date Diagnosis/Indication Diagnosis SNOMED-CT Code Diagnosis ICD10 Code Diagnosis IMO Codes [id number] [address] [place] [address] [phone] 10/14/2014 14:32:57 10/14/2014 17:01:27 Abdominal pain 48045478 Hyperlipidemia 42303850 Pigmented skin lesion 132586239 Present for several years . Enlarged but unsure when [id number] MD Jess Wyatt (Adult Med) [address] [place] [address] [phone] 10/08/2015 14:27:43 10/08/2015 15:49:03 Depressive disorder 88853304 F32.9 Sleep disorder 02489253 G47.9 Stress 53325442 Z73.3 Adult heal th examination 541408124 Z00.00 Anxiety disorder 7669476 06 F41.9 Family his tory of polyp of colon 262758282 Z83.71 Screening for malignant neoplasm of breast 166485927 Z12.39 Hyperlipidemia 67121284 E78.5 [id number] Suzi Romero MD [facility] (Adult Med) [address] [place] [address] [id number] 12/23/2015 12:26:41 12/23/2015 13:06:42 Sleep disorder 04985109 G47.9 Discontinu e trazodone Depressive disorder 3548 9007 F32.9 Vitamin D deficiency 347 24525 E55.9 Pigmented skin lesion 20 1849210 L81.9 Present for several years . Enlarged but unsure when [id number] [facility] [address] [place] [address] [phone] 04/20/2016 14:01:00 04/20/2016 15:05:18 Depressive disorder 52609246 F32.9 Sleep disorder 87525945 G47.9 Vitamin D deficiency 347 49569 E55.9 [id number] [address] [facility] (Adult Med) [address] [place] [address] [id number] 04/04/2018 16:23:18 04/05/2018 10:55:42 History of smoking 3079503328 9763997 Z87.891 Gastroesop hageal reflux disease without esophagitis 128181349 K21.9 Screening for malignant neoplasm of respiratory tract 442621534 Z12.2 Hyperlipidemia 92455438 E78.5 [id number] MD Jess Wyatt (Adult Med) [address] [place] [address] [id number] 07/11/2018 16:05:24 07/11/2018 16:45:40 Depressive disorder 75839454 F32.9 History of smoking 41644 22679 7731909 Z87.891 Sleep disorder 47816630 G47.9 Hyperlipidemia 58100368 E78.5 Discussed reduction of saturated fats in diet Health Concerns Section Related Observation LastModified by Organization Detai ls LastModified Time None Recorded Concern Status LastModified by Organization Details LastModified Time None Recorded Advance Directives Directive None Recorded Payers Insurance Date Sequence Insurance Name Policy Number Policy Ibarra Covered Member ID Ibarra Member ID Guarantor Name 09/10/2018 1 [facility] - DOS PRIOR TO 2021 (MEDICAID REPLACEMENT - HMO) RiannaHoney Hdez [id number] 04/04/2018 1 [facility] - OPEN ACCESS (POS) [id number] RiannaHoney Hdez [id number] Notes Date Note Type Note Provider Name and Address Organization Details Recorded Time 10/08/2015 text/html Feels depressed because of business and personal pressures. Ongoing for the past six weeks. Does not want to get out of bed, no appetite, difficulty falling asleep. Has lost about 25-30 in past six months. No alcohol or drug use. Suzi Romero MD Attn: [address] [place], [address], [facility] 10/08/2015 15:48:15 12/23/2015 text/html Crying spells have improved bu still wants to stay in bed all day. Trazodone made her very dizzy Suzi Romero MD Attn: [address] [place], [address], [facility] 12/23/2015 13:05:55 04/20/2016 text/html Not sure if she is benefitting fro antedepressant. Has doubled the sleep aid for benefit. Suzi Romero MD Attn: [address] [place], [address], [facility] 04/20/2016 15:04:43 04/04/2018 text/html Wants to quit smoking. Has had severe heartburn in the past six months Suzi Romero MD Attn: [address] [place], [address], [facility] 04/04/2018 17:55:47 OBGyn Episode No OBEpisode recorded.
--- OUTSIDE RECORDS SUMMARY | 2025-08-12 00:58 | XMS_ITS | Data Portability ---
Author Organization [place] - [facility] [employer], Main Office Address [address] [place] [address] Care Team Providers Care Computer Information Systems Instructor Name Role Phone MARIA D CODY Primary Care Provider MARIA D CODY Referring Provider [phone] Assessment No assessment recorded. Plan of Treatment Reminders Order Date Submit Date Provider Last Modified By Organization Details Last Modified Time Details Appointments Physical/ Annual Wellness 30 2024 09:30A Joan Hernandez NP Not available Not available Not available Lab vitamin B12, serum 2023 024 [email or web address] Not available 12/14/2023 17:37:12 folate, serum 2023 024 [email or web address] Not available 12/14/2023 17:37:27 lipid panel, serum 2023 024 [email or web address] Not available 12/14/2023 17:35:59 BMP, serum or plasma 2023 024 [email or web address] Not available 12/14/2023 17:36:11 CBC w/ auto diff 2023 024 [email or web address] Not available 12/14/2023 17:36:24 hepatic function panel, serum 2023 024 [email or web address] Not available 12/14/2023 17:36:39 TSH, serum or plasma 2023 024 [email or web address] Not available 12/14/2023 17:36:57 vitamin D3, 25-hydrox y, serum 2023 024 [email or web address] Not available 12/14/2023 17:33:54 Referral gastroent erologist referral - Please call patient to schedule an appointme nt. Thank you. 2024 025 [facility]astro[facility], [address], [address], [place], [address], 06/25/2025 11:21:33 ophthalmo logist referral - Please call patient to schedule an appointme nt. 2023 024 [email or web address] [place], [address] [facility], [address], [place], [address], 01/25/2024 08:42:07 gastroent erologist referral - Please call patient to schedule an appointme nt.. 2023 024 [email or web address] Kiersten Lomeli MD, [address] [facility], [address], [place], [address], 01/16/2024 13:42:16 podiatris t referral - Please call patient to schedule an appointme nt. 2023 024 [email or web address] David DOWD, [address] [facility], [address], [place], [address], 01/16/2024 13:42:56 dermatolo gist referral - Please call patient to schedule an appointme nt. 2023 024 [email or web address] Baylee Caldera MD, [address], [place], [address], 01/16/2024 13:43:24 Procedures upper endoscopy procedure (EGD) (PROC) 2023 024 [email or web address] Not available 03/08/2024 08:26:33 Surgeries None recorded. Imaging CT, neck, soft tissue, w/wo contrast - Please call patient to schedule. 2024 025 [email or web address] [facility], [address], [address], [place], [address], 05/23/2025 17:55:49 MAMMO, screening , digital, bilateral - *Please call pt to schedule* 2023 024 [facility], [address], [place], [address], 06/13/2024 08:09:10 DEXA - *Please call pt to schedule* 2023 024 [email or web address] 56 [facility], [address], [place], [address], 01/30/2024 08:52:21 Medication Orders nicotine 7 mg/24 hr daily transderm al patch 2024 025 [id number], [address], [place], [place], [id number], 04/16/2025 11:06:33 nicotine 14 mg/24 hr daily transderm al patch 2024 025 [facility] #[id number], [address], [place], [place], [id number], 04/16/2025 11:06:33 omeprazol e 40 mg capsule,d elayed release 2023 024 [facility] #[id number], [address], [place], [place], [id number], 07/24/2024 15:40:53 famotidin e 40 mg tablet 2023 024 [facility] #[id number], [address], [place], [place], [id number], 07/24/2024 15:40:51 Patient TargetsNo targets recorded. Patient Instructions Encounter Date Encounter Id Patient Instructions Last Modified By Organization Details Last Modified Time 02/08/2024 [id number] REFLUX DIET [email or web address] Not available 0 02/08/2024 14:57:29 PT WITH GERD SX . NEED TO R/O PUD/ H. PYLORI . RECOMMEND AN EGD . Risks benefits and complications were explained to the pt. ( BLEEDING PERFORATION , INFECTION , ). PT VERBALIZES UNDERSTANDING AND IS WILLING TO PROCEDE . [email or web address] Not available 02/08/2024 14:57:45 04/16/2025 [id number] smoking cessatio n counseling, greater than 3 minutes up to 10 minutes* - Please call patient to schedule an appointment. Thank you. [email or web address] Not available 07/18/2025 10:57:02 Reason for Referral Pot Maker Referral for Gastroesophageal reflux disease without esophagitis Please call patient to schedule an appointment.. Referring Physician: Maria D Cody [facility], Encounter Date: 12/14/2023 Cost Analyst Referral for Pain in left foot Please call patient to schedule an appointment. Referring Physician: Maria D Cody [facility], Encounter Date: 12/14/2023 Belt Picker Referral for Ptosis of eyelid Please call patient to schedule an appointment. Referring Physician: Maria D Cody [facility], Encounter Date: 12/14/2023 Legal Investigator Referral for S kin lesion Please call patient to schedule an appointment. Referring Physician: Maria D Cody [facility], Encounter Date: 12/14/2023 Pot Maker Referral for Gastroesophageal reflux disease without esophagitis Please call patient to schedule an appointment. Thank you. Referring Physician: Shira Hernandez [facility], Encounter Date: 04/16/2025 Results Created Date Observation Date Name Description Value Unit Range Abnormal Flag Note LastModifiedBy Organization Detail LastModifiedTime 09/21/20 22 09/24/2022 VITAM IN D 25-HY DROXY [id number] 20.8 NG/mL 30-100 low Vitam in D Statu s: Defic ient: <20 ng/mL Insuf ficie nt: 20-29 ng/mL Suffi cient : 30-10 0 ng/mL Not Available [facility] (Lab) [address] [place], [address], 09/24/2022 15:26:10 09/21/20 22 09/22/2022 LIPID PANEL cholesterol 188 mg/dL 140-19 9 NIH AVA NSUS RECOM MENDA TION FOR ALFIE STERO L: ADULT CHILD LOW RISK: <200 <170 BORDE RLINE : <200- 239 ----- HIGH RISK: >240 >200 Not Available [facility] (Lab) [address] [place], [address], 09/22/2022 13:31:52 09/21/20 22 09/22/2022 LIPID PANEL triglyceride s 116 mg/dL 0-150 NIH AVA NSUS REPOR T RECOM MENDA TION FOR TRIGL YCERI EMILIANA: ADULT CHILD LOW RISK: <150 ----- BODER LINE: 150-1 99 ----- HIGH RISK: >200 ----- Not Available [facility] (Lab) [address] [place], [address], 09/22/2022 13:31:52 09/21/20 22 09/22/2022 LIPID PANEL HDL cholesterol 62 mg/dL 40- Not Available [facility] (Lab) [address] [place], [address], 09/22/2022 13:31:52 09/21/20 22 09/22/2022 LIPID PANEL LDL cholesterol, calculated 103 mg/dL 0-130 NIH AVA NSUS REPOR T RECOM MENDA TIONS FOR LDL: ADULT CHILD LOW RISK <130 <110 (OPTI MAL LDL) <100 ----- BORDE RLINE : 130-1 59 ----- HIGH RISK: >160 >130 A TRIGL YCERI DE RESUL T >400 INVAL IDATE S THE CALCU LATIO N FOR LDL FRACT IONAT ION - THE LDL RESUL T WILL NOT BE REPOR JAMEL. Not Available [facility] (Lab) [address] [place], [address], 09/22/2022 13:31:52 09/21/20 22 09/22/2022 BASIC METAB OLIC PANEL sodium 140 mmol/ L 137-14 5 Not Available [facility] (Lab) [address] [place], [address], 09/22/2022 13:29:45 09/21/20 22 09/22/2022 BASIC METAB OLIC PANEL potassium 4.6 mmol/ L 3.5-5. 1 Not Available [facility] (Lab) [address] [place], [address], 09/22/2022 13:29:45 09/21/20 22 09/22/2022 BASIC METAB OLIC PANEL chloride 105 mmol/ L 98-107 Not Available [facility] (Lab) [address] [place], [address], 09/22/2022 13:29:45 09/21/20 22 09/22/2022 BASIC METAB OLIC PANEL carbon dioxide 25 mmol/ L 22-30 Not Available [facility] (Lab) [address] [place], [address], 09/22/2022 13:29:45 09/21/20 22 09/22/2022 BASIC METAB OLIC PANEL anion gap 14.6 mmol/ L 14-22 Not Available [facility] (Lab) [address] [place], [address], 09/22/2022 13:29:45 09/21/20 22 09/22/2022 BASIC METAB OLIC PANEL glucose 155 mg/dL 70-99 high Not Available [facility] (Lab) [address] [place], [address], 09/22/2022 13:29:45 09/21/20 22 09/22/2022 BASIC METAB OLIC PANEL BUN 9 mg/dL 8-19 Not Available [facility] (Lab) [address] [place], [address], 09/22/2022 13:29:45 09/21/20 22 09/22/2022 BASIC METAB OLIC PANEL creatinine 0.76 mg/dL 0.66-1 .25 Not Available [facility] (Lab) [address] [place], [address], 09/22/2022 13:29:45 09/21/20 22 09/22/2022 BASIC METAB OLIC PANEL GFR >60 Refer ence Range : [place] ge GFR Healt hy Adult : >60 mL/mi n/1.7 3 m2 Chron ic Kidne y Disea se: 15-60 mL/mi n/1.7 3 m2 Kidne y Failu re: <15/m L/min /1.73 m2 www.n iddk. nih.g ov The MDRD study equat ion has not been valid ated in child vick <18 years of age; pregn ant women ; the elder ly >85 years of age; or in some racia l or ethni c subgr oups, such as Hispa nics. Outsi de the valid ated grace eters , estim ated GFR is less accur ate, requi ring clini mark judgm ent on a case- by-ca se basis . Clini mark inter preta tion for other races and ages must be made by the clini jemal. The MDRD study equat ion has not been valid ated for the evalu ation of serum creat inine relat ed to nutri manasa l statu s or medic ation usage . For perso ns <18 years of age, a pedia tric GFR calcu lator is avail able on the [facility] websi te: https ://lucy w.pradip leary.o rg/pr nelsyess angelal s/kdo qi/gf r_cal culat or Not Available [facility] (Lab) [address] [place], [address], 09/22/2022 13:29:45 09/21/20 22 09/22/2022 BASIC METAB OLIC PANEL calcium 9.6 mg/dL 8.4-10 .2 Not Available [facility] (Lab) [address] [place], [address], 09/22/2022 13:29:45 11/15/20 22 09/22/2022 HEPAT IC/LI YUKI PANEL alkaline phosphatase 76 U/L 38-126 Not Available [facility] (Lab) [address] [place], [address], 09/22/2022 13:28:48 09/21/20 22 09/22/2022 HEPAT IC/LI YUKI PANEL alanine aminotransfe rase 12 U/L 0-35 Not Available [facility] (Lab) [address] [place], [address], 09/22/2022 13:28:48 09/21/20 22 09/22/2022 HEPAT IC/LI YUKI PANEL aspartate aminotransfe rase 17 U/L 15-37 Not Available [facility] (Lab) [address] [place], [address], 09/22/2022 13:28:48 09/21/20 22 09/22/2022 HEPAT IC/LI YUKI PANEL bilirubin, total 0.50 mg/dL 0.20-1 .30 Not Available [facility] (Lab) [address] [place], [address], 09/22/2022 13:28:48 09/21/20 22 09/22/2022 HEPAT IC/LI YUKI PANEL bilirubin, conjugated (direct) 0.00 mg/dL 0.00-0 .30 Not Available [facility] (Lab) [address] [place], [address], 09/22/2022 13:28:48 09/21/20 22 09/22/2022 HEPAT IC/LI YUKI PANEL biliurubin,u ncong. (indirect) 0.30 mg/dL 0.00-1 .1 Not Available [facility] (Lab) [address] [place], [address], 09/22/2022 13:28:48 09/21/20 22 09/22/2022 HEPAT IC/LI YUKI PANEL total protein 7.7 g/dL 6.3-8. 2 Not Available [facility] (Lab) [address] [place], [address], 09/22/2022 13:28:48 09/21/20 22 09/22/2022 HEPAT IC/LI YUKI PANEL albumin 4.7 g/dL 3.4-5. 0 Not Available [facility] (Lab) [address] [facility] [place], [address], 09/22/2022 13:28:48 09/21/20 22 09/22/2022 HEPAT IC/LI YUKI PANEL globulin 3.0 g/dL 2.6-4. 2 Not Available [facility] (Lab) [address] [place], [address], 09/22/2022 13:28:48 09/21/20 22 09/22/2022 HEPAT IC/LI YUKI PANEL A/G ratio 1.6 ratio 1.0-2. 0 Not Available [facility] (Lab) [address] [place], [address], 09/22/2022 13:28:48 09/21/20 22 09/22/2022 CBC/C OMPLE TE BLD COUNT W/DIF F white blood cells 8.2 x10'3 /uL 4.2-10 .8 Not Available [facility] (Lab) [address] [place], [address], 09/22/2022 13:28:08 09/21/20 22 09/22/2022 CBC/C OMPLE TE BLD COUNT W/DIF F red blood cells 4.37 x10'6 /uL 3.80-5 .20 Not Available [facility] (Lab) [address] [place], [address], 09/22/2022 13:28:08 09/21/20 22 09/22/2022 CBC/C OMPLE TE BLD COUNT W/DIF F hemoglobin 13.7 g/dL 12.0-1 5.6 Not Available [facility] (Lab) [address] [place], [address], 09/22/2022 13:28:08 09/21/20 22 09/22/2022 CBC/C OMPLE TE BLD COUNT W/DIF F hematocrit 40.4 % 35.7-4 5.7 Not Available [facility] (Lab) [address] [place], [address], 09/22/2022 13:28:08 09/21/20 22 09/22/2022 CBC/C OMPLE TE BLD COUNT W/DIF F mean red cell volume 92.4 fL 82.0-9 9.0 Not Available [facility] (Lab) [address] [place], [address], 09/22/2022 13:28:08 09/21/20 22 09/22/2022 CBC/C OMPLE TE BLD COUNT W/DIF F mean red cell hemoglobin 31.4 pg 27.0-3 3.0 Not Available [facility] (Lab) [address] [place], [address], 09/22/2022 13:28:08 09/21/20 22 09/22/2022 CBC/C OMPLE TE BLD COUNT W/DIF F mean RBC HGB concentratio n 33.9 g/dL 31.0-3 6.0 Not Available [facility] (Lab) [address] [place], [address], 09/22/2022 13:28:08 09/21/20 22 09/22/2022 CBC/C OMPLE TE BLD COUNT W/DIF F red cell distribution width 12.6 % 11.8-1 5.5 Not Available [facility] (Lab) [address] [place], [address], 09/22/2022 13:28:08 09/21/20 22 09/22/2022 CBC/C OMPLE TE BLD COUNT W/DIF F platelets 333 x10'3 /uL 150-40 0 Not Available [facility] (Lab) [address] [place], [address], 09/22/2022 13:28:08 09/21/20 22 09/22/2022 CBC/C OMPLE TE BLD COUNT W/DIF F mean platelet volume 9.0 fL 9.0-12 .4 Not Available [facility] (Lab) [address] [place], [address], 09/22/2022 13:28:08 09/21/2009/22/2022 CBC/C OMPLE TE BLD COUNT W/DIF F neutrophils 73.2 % 39.0-7 2.0 high Not Available [facility] (Lab) [address] [place], [address], 09/22/2022 13:28:08 09/21/20 22 09/22/2022 CBC/C OMPLE TE BLD COUNT W/DIF F lymphocytes 18.6 % 16.0-4 7.0 Not Available [facility] (Lab) [address] [place], [address], 09/22/2022 13:28:08 09/21/20 22 09/22/2022 CBC/C OMPLE TE BLD COUNT W/DIF F monocytes 6.6 % 5.0-12 .0 Not Available [facility] (Lab) [address] [place], [address], 09/22/2022 13:28:08 09/21/20 22 09/22/2022 CBC/C OMPLE TE BLD COUNT W/DIF F eosinophils 0.5 % 1.0-7. 0 low Not Available [facility] (Lab) [address] [place], [address], 09/22/2022 13:28:08 09/21/20 22 09/22/2022 CBC/C OMPLE TE BLD COUNT W/DIF F basophils 0.7 % 0.0-2. 0 Not Available [facility] (Lab) [address] [place], [address], 09/22/2022 13:28:08 09/21/20 22 09/22/2022 CBC/C OMPLE TE BLD COUNT W/DIF F immature granulocytes 0.4 % 0.00-0 .50 Not Available [facility] (Lab) [address] [place], [address], 09/22/2022 13:28:08 09/21/20 22 09/22/2022 CBC/C OMPLE TE BLD COUNT W/DIF F neutrophils, absolute count 6.00 x10'3 /uL 1.5-8. 0 Not Available [facility] (Lab) [address] [place], [address], 09/22/2022 13:28:08 09/21/20 22 09/22/2022 CBC/C OMPLE TE BLD COUNT W/DIF F immature granulocytes ,absolute 0.03 x10'3 /uL 0.00-0 .05 Not Available [facility] (Lab) [address] [place], [address], 09/22/2022 13:28:08 09/21/20 22 09/22/2022 CBC/C OMPLE TE BLD COUNT W/DIF F nucleated red blood cells 0.0 % -0 Not Available [facility] (Lab) [address] [place], [address], 09/22/2022 13:28:08 09/21/20 22 09/22/2022 CBC/C OMPLE TE BLD COUNT W/DIF F NRBC# 0.00 x10'3 /uL Not Available [facility] (Lab) [address] [place], [address], 09/22/2022 13:28:08 09/21/20 22 09/22/2022 TSH thyroid-stim ulating hormone 0.241 uIU/m L 0.465- 4.680 low Not Available [facility] (Lab) [address] [place], [address], 09/22/2022 13:26:40 09/22/20 22 09/24/2022 T4 FREE free T4 1.30 NG/dL 0.78-2 .19 Not Available [facility] (Lab) [address] [place], [address], 09/24/2022 21:14:13 11/11/19 23 11/11/2022 T4 FREE free T4 1.42 NG/dL 0.78-2 .19 Not Available [facility] (Lab) [address] [place], [address], 11/11/2022 17:27:50 11/11/19 23 11/11/2022 TSH thyroid-stim ulating hormone 0.420 uIU/m L 0.465- 4.680 low Not Available [facility] (Lab) [address] [place], [address], 11/11/2022 17:26:29 12/14/19 24 12/14/2023 CBC/C OMPLE TE BLD COUNT W/DIF F white blood cells 4.9 x10'3 /uL 4.2-10 .8 Not Available [facility] (Lab) [address] [place], [address], 12/14/2023 20:08:22 12/14/19 24 12/14/2023 CBC/C OMPLE TE BLD COUNT W/DIF F red blood cells 3.93 x10'6 /uL 3.80-5 .20 Not Available [facility] (Lab) [address] [place], [address], 12/14/2023 20:08:22 12/14/19 24 12/14/2023 CBC/C OMPLE TE BLD COUNT W/DIF F hemoglobin 12.3 g/dL 12.0-1 5.6 Not Available [facility] (Lab) [address] [place], [address], 12/14/2023 20:08:22 12/14/19 24 12/14/2023 CBC/C OMPLE TE BLD COUNT W/DIF F hematocrit 36.7 % 35.7-4 5.7 Not Available [facility] (Lab) [address] [place], [address], 12/14/2023 20:08:22 12/14/19 24 12/14/2023 CBC/C OMPLE TE BLD COUNT W/DIF F mean red cell volume 93.4 fL 82.0-9 9.0 Not Available [facility] (Lab) [address] [place], [address], 12/14/2023 20:08:22 12/14/19 24 12/14/2023 CBC/C OMPLE TE BLD COUNT W/DIF F mean red cell hemoglobin 31.3 pg 27.0-3 3.0 Not Available [facility] (Lab) [address] [place], [address], 12/14/2023 20:08:22 12/14/19 24 12/14/2023 CBC/C OMPLE TE BLD COUNT W/DIF F mean RBC HGB concentratio n 33.5 g/dL 31.0-3 6.0 Not Available [facility] (Lab) [address] [place], [address], 12/14/2023 20:08:22 12/14/19 24 12/14/2023 CBC/C OMPLE TE BLD COUNT W/DIF F red cell distribution width 13.0 % 11.8-1 5.5 Not Available [facility] (Lab) [address] [place], [address], 12/14/2023 20:08:22 12/14/19 24 12/14/2023 CBC/C OMPLE TE BLD COUNT W/DIF F platelets 347 x10'3 /uL 150-40 0 Not Available [facility] (Lab) [address] [place], [address], 12/14/2023 20:08:22 12/14/19 24 12/14/2023 CBC/C OMPLE TE BLD COUNT W/DIF F mean platelet volume 9.6 fL 9.0-12 .4 Not Available [facility] (Lab) [address] [place], [address], 12/14/2023 20:08:22 12/14/19 24 12/14/2023 CBC/C OMPLE TE BLD COUNT W/DIF F neutrophils 52.1 % 39.0-7 2.0 Not Available [facility] (Lab) [address] [place], [address], 12/14/2023 20:08:22 12/14/19 24 12/14/2023 CBC/C OMPLE TE BLD COUNT W/DIF F lymphocytes 39.4 % 16.0-4 7.0 Not Available [facility] (Lab) [address] [place], [address], 12/14/2023 20:08:22 12/14/19 24 12/14/2023 CBC/C OMPLE TE BLD COUNT W/DIF F monocytes 6.1 % 5.0-12 .0 Not Available [facility] (Lab) [address] [place], [address], 12/14/2023 20:08:22 12/14/19 24 12/14/2023 CBC/C OMPLE TE BLD COUNT W/DIF F eosinophils 1.4 % 1.0-7. 0 Not Available [facility] (Lab) [address] [place], [address], 12/14/2023 20:08:22 12/14/19 24 12/14/2023 CBC/C OMPLE TE BLD COUNT W/DIF F basophils 0.8 % 0.0-2. 0 Not Available [facility] (Lab) [address] [place], [address], 12/14/2023 20:08:22 12/14/19 24 12/14/2023 CBC/C OMPLE TE BLD COUNT W/DIF F immature granulocytes 0.2 % 0.00-0 .50 Not Available [facility] (Lab) [address] [place], [address], 12/14/2023 20:08:22 12/14/19 24 12/14/2023 CBC/C OMPLE TE BLD COUNT W/DIF F neutrophils, absolute count 2.55 x10'3 /uL 1.5-8. 0 Not Available [facility] (Lab) [address] [place], [address], 12/14/2023 20:08:22 12/14/19 24 12/14/2023 CBC/C OMPLE TE BLD COUNT W/DIF F lymphocytes, absolute count 1.93 x10'3 /uL 1.07-3 .43 Not Available [facility] (Lab) [address] [place], [address], 12/14/2023 20:08:22 12/14/19 24 12/14/2023 CBC/C OMPLE TE BLD COUNT W/DIF F monocytes, absolute count 0.30 x10'3 /uL 0.29-0 .99 Not Available [facility] (Lab) [address] [place], [address], 12/14/2023 20:08:22 12/14/19 24 12/14/2023 CBC/C OMPLE TE BLD COUNT W/DIF F eosinophils, absolute count 0.07 x10'3 /uL 0.02-0 .53 Not Available [facility] (Lab) [address] [place], [address], 12/14/2023 20:08:22 12/14/19 24 12/14/2023 CBC/C OMPLE TE BLD COUNT W/DIF F basophils, absolute count 0.04 x10'3 /uL 0.01-0 .08 Not Available [facility] (Lab) [address] [place], [address], 12/14/2023 20:08:22 12/14/19 24 12/14/2023 CBC/C OMPLE TE BLD COUNT W/DIF F immature granulocytes ,absolute 0.01 x10'3 /uL 0.00-0 .05 Not Available [facility] (Lab) [address] [place], [address], 12/14/2023 20:08:22 12/14/19 24 12/14/2023 CBC/C OMPLE TE BLD COUNT W/DIF F nucleated red blood cells 0.0 % -0 Not Available [facility] (Lab) [address] [place], [address], 12/14/2023 20:08:22 12/14/19 24 12/14/2023 CBC/C OMPLE TE BLD COUNT W/DIF F NRBC# 0.00 x10'3 /uL Not Available [facility] (Lab) [address] [place], [address], 12/14/2023 20:08:22 12/14/19 24 12/15/2023 VITAM IN B12 (MOOK ZEINAB ) vb12 287 pg/mL 239-93 1 Not Available [facility] (Lab) [address] [place], [address], 12/15/2023 18:31:06 12/14/19 24 12/14/2023 LIPID PANEL cholesterol 194 mg/dL 140-19 9 NIH AVA NSUS RECOM MENDA TION FOR ALFIE STERO L: ADULT CHILD LOW RISK: <200 <170 BORDE RLINE : <200- 239 ----- HIGH RISK: >240 >200 Not Available [facility] (Lab) [address] [place], [address], 12/14/2023 20:53:01 12/14/19 24 12/14/2023 LIPID PANEL triglyceride s 131 mg/dL 0-150 NIH AVA NSUS REPOR T RECOM MENDA TION FOR TRIGL YCERI EMILIANA: ADULT CHILD LOW RISK: <150 ----- BODER LINE: 150-1 99 ----- HIGH RISK: >200 ----- Not Available [facility] (Lab) [address] [place], [address], 12/14/2023 20:53:01 12/14/19 24 12/14/2023 LIPID PANEL HDL cholesterol 52 mg/dL 40- Not Available [facility] (Lab) [address] [place], [address], 12/14/2023 20:53:01 12/14/19 24 12/14/2023 LIPID PANEL LDL cholesterol, calculated 116 mg/dL 0-130 NIH AVA NSUS REPOR T RECOM MENDA TIONS FOR LDL: ADULT CHILD LOW RISK <130 <110 (OPTI MAL LDL) <100 ----- BORDE RLINE : 130-1 59 ----- HIGH RISK: >160 >130 A TRIGL YCERI DE RESUL T >400 INVAL IDATE S THE CALCU LATIO N FOR LDL FRACT IONAT ION - THE LDL RESUL T WILL NOT BE REPOR JAMEL. Not Available [facility] (Lab) [address] [place], [address], 12/14/2023 20:53:01 12/14/19 24 12/14/2023 BASIC METAB OLIC PANEL sodium 139 mmol/ L 137-14 5 Not Available [facility] (Lab) [address] [place], [address], 12/14/2023 20:53:05 12/14/19 24 12/14/2023 BASIC METAB OLIC PANEL potassium 3.8 mmol/ L 3.5-5. 1 Not Available [facility] (Lab) [address] [place], [address], 12/14/2023 20:53:05 12/14/19 24 12/14/2023 BASIC METAB OLIC PANEL chloride 106 mmol/ L 98-107 Not Available [facility] (Lab) [address] [place], [address], 12/14/2023 20:53:05 12/14/19 24 12/14/2023 BASIC METAB OLIC PANEL carbon dioxide 26 mmol/ L 22-30 Not Available [facility] (Lab) [address] [place], [address], 12/14/2023 20:53:05 12/14/19 24 12/14/2023 BASIC METAB OLIC PANEL anion gap 10.8 mmol/ L 14-22 low Not Available [facility] (Lab) [address] [place], [address], 12/14/2023 20:53:05 12/14/19 24 12/14/2023 BASIC METAB OLIC PANEL glucose 100 mg/dL 70-99 high Not Available [facility] (Lab) [address] [place], [address], 12/14/2023 20:53:05 12/14/19 24 12/14/2023 BASIC METAB OLIC PANEL BUN 7 mg/dL 8-19 low Not Available [facility] (Lab) [address] [place], [address], 12/14/2023 20:53:05 12/14/19 24 12/14/2023 BASIC METAB OLIC PANEL creatinine 0.63 mg/dL 0.66-1 .25 low Not Available [facility] (Lab) [address] [place], [address], 12/14/2023 20:53:05 12/14/19 24 12/14/2023 BASIC METAB OLIC PANEL GFR >60 Refer ence Range : [place] ge GFR Healt hy Adult : >60 mL/mi n/1.7 3 m2 Chron ic Kidne y Disea se: 15-60 mL/mi n/1.7 3 m2 Kidne y Failu re: <15/m L/min /1.73 m2 [email or web address] ov The MDRD study equat ion has not been valid ated in child ivck <18 years of age; pregn ant women ; the elder ly >85 years of age; or in some racia l or ethni c subgr oups, such as Hispa nics. Outsi de the valid ated grace eters , estim ated GFR is less accur ate, requi ring clini mark judgm ent on a case- by-ca se basis . Clini mark inter preta tion for other races and ages must be made by the clini jemal. The MDRD study equat ion has not been valid ated for the evalu ation of serum creat inine relat ed to nutri manasa l statu s or medic ation usage . For perso ns <18 years of age, a pedia tric GFR calcu lator is avail able on the [facility] websi te: [email or web address] :[email or web address] whittingtoness [email or web address] s/kdo qi/gf r_cal culat or Not Available [facility] (Lab) [address] [place], [address], 12/14/2023 20:53:05 12/14/19 24 12/14/2023 BASIC METAB OLIC PANEL calcium 9.5 mg/dL 8.4-10 .2 Not Available [facility] (Lab) [address] [place], [address], 12/14/2023 20:53:05 12/14/19 24 12/14/2023 HEPAT IC/LI YUKI PANEL alkaline phosphatase 80 U/L 38-126 Not Available [facility] (Lab) [address] [place], [address], 12/14/2023 20:53:11 12/14/19 24 12/14/2023 HEPAT IC/LI YUKI PANEL alanine aminotransfe rase 12 U/L 0-35 Not Available [facility] (Lab) [address] [place], [address], 12/14/2023 20:53:11 12/14/19 24 12/14/2023 HEPAT IC/LI YUKI PANEL aspartate aminotransfe rase 26 U/L 15-37 Not Available [facility] (Lab) [address] [place], [address], 12/14/2023 20:53:11 12/14/19 24 12/14/2023 HEPAT IC/LI YUKI PANEL bilirubin, total 0.40 mg/dL 0.20-1 .30 Not Available [facility] (Lab) [address] [place], [address], 12/14/2023 20:53:11 12/14/19 24 12/14/2023 HEPAT IC/LI YUKI PANEL bilirubin, conjugated (direct) 0.00 mg/dL 0.00-0 .30 Not Available [facility] (Lab) [address] [place], [address], 12/14/2023 20:53:11 12/14/19 24 12/14/2023 HEPAT IC/LI YUKI PANEL biliurubin,u ncong. (indirect) 0.00 mg/dL 0.00-1 .1 Not Available [facility] (Lab) [address] [place], [address], 12/14/2023 20:53:11 12/14/19 24 12/14/2023 HEPAT IC/LI YUKI PANEL total protein 7.0 g/dL 6.3-8. 2 Not Available [facility] (Lab) [address] [place], [address], 12/14/2023 20:53:11 12/14/19 24 12/14/2023 HEPAT IC/LI YUKI PANEL albumin 4.2 g/dL 3.0-4. 4 Not Available [facility] (Lab) [address] [place], [address], 12/14/2023 20:53:11 12/14/19 24 12/14/2023 HEPAT IC/LI YUKI PANEL globulin 2.8 g/dL 2.6-4. 2 Not Available [facility] (Lab) [address] [place], [address], 12/14/2023 20:53:11 12/14/19 24 12/14/2023 HEPAT IC/LI YUKI PANEL A/G ratio 1.5 ratio 1.0-2. 0 Not Available [facility] (Lab) [address] [place], [address], 12/14/2023 20:53:11 12/14/19 24 12/14/2023 TSH thyroid-stim ulating hormone 1.160 uIU/m L 0.465- 4.680 Not Available [facility] (Lab) [address] [place], [address], 12/14/2023 20:55:42 12/14/19 24 12/14/2023 VITAM IN D 25-HY DROXY vd25oh 16.0 NG/mL 30-100 low Vitam in D Statu s: Defic ient: <20 ng/mL Insuf ficie nt: 20-29 ng/mL Suffi cient : 30-10 0 ng/mL Not Available [facility] (Lab) [address] [place], [address], 12/14/2023 20:55:53 12/14/19 24 12/14/2023 FOLAT E, SERUM /PLAS MA folate 7.91 NG/mL 2.76-2 0.0 Not Available [facility] (Lab) [address] [place], [address], 12/14/2023 21:27:57 11/09/21/2022 MAMMO , scree paula, bilat eral No observ ation record ed. [id number] [place] [address] [address], [place], [address], 01/06/2023 00:06:41 09/22/20 22 09/21/2022 MAMMO , scree paula, bilat eral No observ ation record ed. [id number] [place] [address] [address], [place], [address], 01/06/2023 00:06:41 11/11/19 23 11/11/2022 mammo gram, follo w up* No observ ation record ed. [id number] [place] [address] [address], [place], [address], 01/06/2023 00:06:41 06/12/20 24 06/12/2024 MAMMO , scree paula, digit al, bilat eral No observ ation record ed. [email or web address] [address], [place], [address], 06/15/2024 10:09:46 06/15/20 24 06/12/2024 DEXA No observ ation record ed. [email or web address] [address], [place], [address], 07/04/2024 14:14:19 06/15/20 24 06/12/2024 DEXA No observ ation record ed. [email or web address] [address], [place], [address], 07/04/2024 14:14:19 06/15/20 24 06/12/2024 DEXA No observ ation record ed. [email or web address] [address], [place], [address], 07/04/2024 14:14:20 07/03/20 25 07/02/2025 CT, neck, soft tissu e, w/wo contr ast No observ ation record ed. [email or web address] [facility] [address], [place], [address], 07/10/2025 10:34:13 Result Notes None recorded. Problems Name Problem SNOMED Code Status Onset Date Resolution Date Notes Provider Name and Address Organization Details Recorded Time Pain in left foot 8447153668778 07 Active 2021 Not Available [facility] 3 00:05:32 Gastroesop hageal reflux disease without esophagiti s 129591089 Active 2021 Not Available [facility] 3 00:05:32 Heartburn 52255863 Active 2022 Maria D Cody MD [address], [place], [address] , [employer] 3 11:58:49 Vitamin D deficiency 24151536 Active 2023 MD [address], [place], [address] , [employer] 4 17:06:15 Thyroid function tests abnormal 638784545 Active 2023 MD [address], [place], [address] , [employer] 4 17:07:37 Numbness and tingling sensation of skin 171175792328 Active 2023 MD [address], [place], [address] , [employer] 4 17:11:35 Ptosis of eyelid 75469988 Active 2023 MD [address], [address] , [employer] 4 17:13:05 Skin lesion 11088944 Active 2023 MD [address], [place], [address] , [employer] 4 17:13:36 Osteoarthr itis 724905150 Active 2023 Ashley Triplett APRN [address], [address], [place], [address] , [employer] 4 12:46:52 Osteoporos is 65009512 Active 2023 INOCENCIO Dailey [address], [facility] [address], [place], [address] , [employer] 4 11:29:10 Chronic constipati on 642773939 Active 2023 INOCENCIO Dailey [address], [place], [address] , [employer] 4 15:39:30 Weight loss 46491240 Active 2023 INOCENCIO Dailey [address], [place], [address] , [employer] 4 15:41:46 Throat irritation 823886266 Active 2024 INOCENCIO Dailey [address], [place], [address] , [employer] 5 11:02:47 Dysphagia 84490406 Active 2024 INOCENCIO Dailey [address], [place], [address] , [employer] 5 11:03:56 Problem Notes None recorded. Procedures Surgical History Date Name Laterality Status Provider Name and Address Organization Details Recorded Time 7 section completed Not Available [facility] 01/06/2023 00:04:57 Foot Surgery completed Not Available [facility] 01/06/2023 00:04:57 Imaging Results None recorded. Procedure Notes None recorded. Medical Equipment None Reported. Allergies No known drug allergies Medications Name Sig Start Date Stop Date Status Note LastModified by Organization Details LastModified Time nicotine 14 mg/24 hr daily transdermal patch APPLY 1 PATCH TOPICALLY TO THE SKIN EVERY DAY active Not Available Not Available No t Available clindamycin HCl 300 mg capsule TAKE 1 CAPSULE BY MOUTH EVERY 6 HOURS 04/16 completed Not Available Not Available Not Available ibuprofen 800 mg tablet TAKE 1 TABLET BY MOUTH EVERY 6 HOURS active Not Available Not Available No t Available hydrocodone 5 mg-acetamin ophen 325 mg tablet TAKE 1 TABLET BY MOUTH EVERY 6 HOURS NEEDED FOR PAIN 08/05 completed Not Available Not Available Not Available famotidine 40 mg tablet TAKE 1 TABLET BY MOUTH EVERY DAY NEEDED active Not Available Not Available No t Available alendronate 70 mg tablet TAKE 1 TABLET BY MOUTH EVERY WEEK active Not Available Not Available No t Available acetaminoph en 300 mg-codeine 30 mg tablet TAKE 1 TABLET BY MOUTH EVERY 4 HOURS NEEDED FOR PAIN 08/05 completed Not Available Not Available Not Available omeprazole 40 mg capsule,del ayed release TAKE 1 CAPSULE BY MOUTH EVERY DAY IN THE MORNING active Not Available Not Available No t Available tramadol 50 mg tablet TAKE 1 TO 2 TABLETS BY MOUTH EVERY 6 HOURS NEEDED FOR PAIN 04/16 completed Not Available Not Available Not Available ondansetron 8 mg disintegrat ing tablet Place 1 tablet 3 times a day by transling ual route as needed. 12/14 completed Not Available Not Available Not Available ciclopirox 8 % topical solution active Not Available Not Available Not Available amoxicillin 875 mg tablet TAKE 1 TABLET BY MOUTH EVERY 12 HOURS 04/16 completed Not Available Not Available Not Available cephalexin 500 mg capsule TAKE ONE CAPSULE BY MOUTH FOUR TIMES DAILY 09/15 completed Not Available Not Available Not Available pantoprazol e 40 mg tablet,cosmo yed release Take 1 tablet twice a day by oral route. active Not Available Not Available No t Available nystatin-tr iamcinolone 100,000 unit/g-0.1 % topical cream 08/05 completed Not Available Not Available Not Available ergocalcife rol (vitamin D2) 1,250 mcg (50,000 unit) capsule TAKE 1 CAPSULE BY MOUTH EVERY WEEK active Not Available Not Available No t Available nicotine 7 mg/24 hr daily transdermal patch APPLY 1 PATCH TOPICALLY TO THE SKIN EVERY DAY active Not Available Not Available No t Available Prilosec 09/22 completed Not Available Not Available Not Available Golytely 236 gram-22.74 gram-6.74 gram-5.86 gram oral solution DIRECTED 12/14 completed Not Available Not Available Not Available PreviDent 5000 Booster Plus 1.1 % dental paste USE DIRECTED 07/24 completed Not Available Not Available Not Available bupropion HCl 150 mg tablet,12 hr sustained-r elease(smok ing deterrent) TAKE 1 TABLET BY MOUTH TWICE DAILY active Not Available Not Available No t Available Vitals Date Recorded Body weight Body temperature Heart rate Oxygen saturation Oxygen saturation in Arterial blood by Pulse oximetry Systolic And Diastolic Provider Name and Address Organization Details Last Updated DateTime 4 06215.9 4 g 97.7 [degF] 70 /min 92 % 92 % 136/80 mm[Hg] Ananda Gutierrez RN [facility] [employer] 4 16:51:40 Date Recorded Body height Body mass index (BMI) Body weight Provider Name and Address Organization Details Last Updated DateTime 02/08/2024 154.94 cm 21.4 kg/m2 32318.94 g Nayla Bowman Raymond [facility] [employer] 02/08/2024 13:59:04 Date Recorded Body height Body mass index (BMI) Body weight Body temperature Heart rate Oxygen saturation Oxygen saturation in Arterial blood by Pulse oximetry Systolic And Diastolic Provider Name and Address Organization Details Last Updated DateTime 5 154.94 cm 20.4 kg/m2 02214.9 8 g 98.7 [degF] 68 /min 96 % 96 % 146/80 mm[Hg] Enrique Giordano Raymond [facility] [employer] [facility] 5 10:50:27 Date Recorded Body height Body mass index (BMI) Body weight Body temperature Heart rate Oxygen saturation Oxygen saturation in Arterial blood by Pulse oximetry Systolic And Diastolic Provider Name and Address Organization Details Last Updated DateTime 4 154.94 cm 19.8 kg/m2 55328.2 g 97.3 [degF] 71 /min 98 % 98 % 144/82 mm[Hg] Ananda Gutierrez RN [facility] [employer] 4 15:27:04 Date Recorded Body mass index (BMI) Body height Oxygen saturation Oxygen saturation in Arterial blood by Pulse oximetry Heart rate Body temperature Body weight Systolic And Diastolic Provider Name and Address Organization Details Last Updated DateTime 2 21.4 kg/m2 154.94 cm 100 % 100 % 81 /min 96.7 [degF] 76932.9 4 g 132/74 mm[Hg] Not Available [facility] 00:[facility]:05 Social History Question Answer Notes LastModified by CO-Value Details LastModified Time Tobacco Smoking Status Current Every Day Smoker 1 ppd started 17 Not Available [facility] 01/06/2023 00:04:36 Do You Have An Advance Directive? No [id number] Information not available 01/06/2023 What Is Your Level Of Caffeine Consumption? None [id number] Information not available 01/06/2023 In The 14 Days Before Symptom Onset, Have You Had Close Contact With A Laboratory-confir med COVID-19 While That Case Was Ill? No [id number] Information not available 01/06/2023 In The 14 Days Before Symptom Onset, Have You Had Close Contact With A Person Who Is Under Investigation For COVID-19 While That Person Was Ill? No [id number] Information not available 01/06/2023 What Type Of Diet Are You Following? REGULAR [id number] Information not available 01/06/2023 What Was The Date Of Your Most Recent Tobacco Screening? 12/14/2023 [email or web address] Information not available 12/14/2023 At What Age Did You Start Smoking Tobacco? 17 [id number] Information not available 01/06/2023 How Much Tobacco Do You Smoke? 1 PPD [id number] Information not available 01/06/2023 Has Tobacco Cessation Counseling Been Provided? No [id number] Information not available 01/06/2023 Have You Recently Traveled Abroad? No [id number] [id number] Information not available 01/06/2023 Sex: Female Functional Status Question Answer Note LastModified by Organizat ion Details LastModified Time Do you use any illicit or recreational drugs? No [id number] Information not available 01/06/2023 What is your level of alcohol consumption? None [id number] Information not available 01/06/2023 What is your exercise level? Occasional [id number] Information not available 01/06/2023 Mental Status None recorded. Family History Relationship Description Onset Age of this Age Resolved Age Notes LastModified by Organization Details LastModified Time Mother Arthritis [id number] Not available 01/06/2023 00:04:58 Sister Family history of malignant neoplasm liver and lung [id number] Not available 01/06/2023 00:04:58 Father Chronic obstructive pulmonary disease [id number] Not available 01/06/2023 00:04:58 Medical History No medical history recorded. Gynecological History Statement/Question Response Date of Last Mammogram Date of Last Colonoscopy Most Recent Bone Density Obstetrics History GPAL:G 0 P 0 0 0 0 Immunizations Vaccine Type Date Status Note Provider Nam e and Address Organization Details Recorded Time Influenza, split virus, quadrivalent, PF 08/05/2022 completed Not Available [facility] 00:06:27 Influenza, split virus, quadrivalent, PF 12/14/2023 completed Maria D Cody MD [address] [facility] [address], [place], [address], [facility] 01/05/2024 18:01:11 Past Encounters Encounter ID Performer Location Encounter Start Date Encounter Closed Date Diagnosis/Indication Diagnosis SNOMED-CT Code Diagnosis ICD10 Code Diagnosis IMO Codes Diagnosis Note [id number] David Newby DPM [facility] Podiatry [place] [address] [facility] [address] [place] [address] 11/24/2021 00:00:00 12/07/2021 11:15:16 [id number] Maria D Cody MD [facility] Primary Care [address] [place] [address] 08/05/2022 00:00:00 08/05/2022 18:13:47 [id number] _ATHN_MIGR ATION_1 _ATHENA_M IGRATION_ DEFAULT_1 _1 , 09/15/2022 00:00:00 09/15/2022 13:09:03 [id number] Maria D Cody MD [facility] Primary Care [address] [place] [address] 09/22/2022 00:00:00 10/05/2022 18:28:55 [id number] Maria D Cody MD [facility] Primary Care [place] [address] [facility] [address] [place] [address] 12/14/2023 16:42:13 12/14/2023 17:26:01 Adult health examination 825145307 Z00.00 Z13.220 Z13.1 Z79.899 Flu vaccine todayrecom mend covid booster nowshingle s vaccine recommende dpneumovax 23 at age 65Prevnar 20 nowMammogr am order givenDEXA orderedPap normal 09/28Fasti ng labs orderedCol onoscopy 09/20/22 normal repeat 2031 Administra tion of influenza vaccine 71880598 Z23 Screening mammography 24 702535 Z12.31 Postmenopausal state 764 03915 Z78.0 Gastroesop hageal reflux disease without esophagitis 931375517 K21.9 no improvemen t with PPI bid and famotidine Vitamin D deficiency 347 50307 E55.9 Thyroid fu nction tests abnormal 965907684 R94.6 Pain in left foot 667165 3607 01141 M79.672 B35.1 Numbness a nd tingling sensation of skin 5632987267 02 R20.2 Ptosis of eyelid 5677936 0 H02.409 Skin lesion 56042569 L98 .9 [id number] Kiersten Lomeli MD [facility] General Surgery [address] [facility] [address] [place] [address] 02/08/2024 13:54:56 02/08/2024 14:27:57 Gastroesophageal reflux disease without esophagitis 060040007 K21.9 [id number] JACK Dailey-Dianna [facility] Primary Care [place] [address] [facility] [address] [place] [address] 07/24/2024 15:21:54 07/24/2024 15:44:57 Gastroesophageal reflux disease without esophagitis 823869139 K21.9 Will follow up in one month, sooner if needed. Chronic constipation 236 464635 K59.09 Discussed taking Miralax as needed for constipati on. Weight loss 93375198 R63 .4 Recommende d drinking ensure to increase nutrient intake since diet is poor. [id number] Shira Hernandez, FINANCIAL PROJECT MANAGER-C [facility] Primary Care [place] [address] [facility] [address] [place] [address] 04/16/2025 10:22:10 04/16/2025 11:08:34 Counseling for harmful pattern of substance use 161497371 Z71.6 14332238 Currently smokes 1.5 ppdWill start Nicotine patches as listed below. Discussed other smoking cessation options with patient to include medication s, therapy, acupunctur e and hypnosis. Patient will contact office if patches are not helpful. Gastroesop hageal reflux disease without esophagitis 005474488 K21.9 Patient requesting new referral as she did care for the previous GI specialist . Dysphagia 90549788 R13.1 0 J39.2 [id number] Will order imaging as listed below due to intermitte nt difficulty swallowing and right sided throat irritation for an extended period of time. Health Concerns Section Related Observation LastModified by Organization Detai ls LastModified Time None Recorded Concern Status LastModified by Organization Details LastModified Time None Recorded Advance Directives Directive N: Payers Insurance Date Sequence Insurance Name Policy Number Policy Ibarra Covered Member ID Ibarra Member ID Guarantor Name 04/19/2025 1 UMR (PPO) [id number] Audrey Hdez [id number] Audrey Hdez 04/16/2025 1 FANTAS[employer]-ID (PPO) [id number] Melina Hdez [id number] Audrey Hdez Notes Date Note Type Note Provider Name and Address Organization Details Recorded Time 12/14/2023 text/html spits up acidtries to sleep uprighthas taken ppi bid and famotidine bid with 6-8 episodes of breakthrough per week left foot painful stinging burning pain foot feels asleep droopy eyelid obscures her vision when she is tired Maria D Cody MD [address] [place] [address], [place], [address], [facility] [email or web address] 01/05/2024 18:01:24 02/08/2024 text/html ROS as noted in the HPI PT WAS SEEN IN THE OFFICE TODAY FOR GERD . PT DENIES ABD PAIN /N/V. PT ADMITS TO PYROSIS. 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 PT TAKES PEPCID /OMEPRAZOLE 20 MG OTC PRN. PT EATS FAST FOODS FOR LUNCH. EATS DINNER AT 8PM AND GOES RIGHT TO BED . Kiersten Lomeli MD [address], [place], [address], [facility] [employer] 02/08/2024 14:58:22 07/24/2024 text/html ROS as noted in the HPI Patient is a 63 year old female that presents to the office for follow up. Patient recently started Alendronate, denies side effects. Patient reports worsening constipation, does not drink enough water due to her job. Patient reports she does take daily fiber but it has not been helping. Patient reports abnormal weight loss. Patient does not eat well, maybe once a day if that. Patient denies nausea and vomiting, abdominal pain. Patient does not believe that her Famotidine is working any longer, she has been taking two doses daily which does help but then runs out before she can get it refilled. INOCENCIO Dailey [address], [place], [address], [employer] 07/24/2024 16:34:24 04/16/2025 text/html Patient is a 64 year old female that presents to the office for follow-up. Patient reports she is doing well overall, is interested in smoking cessation. Patient currently smokes 1.5ppd, has tried medications in the past that were not successful. Patient also reports she was suppose to have an EGD completed but did not follow through with the appt, requesting new referral. INOCENCIO Dailey [address] [facility] [address], [place], [address], [employer] 04/16/2025 23:22:13 OBGyn Episode No OBEpisode recorded.
[2025-08-12 11:38] VITALS: BP 127/54; PULSE 66; RESP 16; TEMP 36.6; O2SAT 98
[2025-08-12] MEDS: LACTATED RINGERS 1,000 ML 150 ML IV CONT (11:47)
--- NOTE | 2025-08-12 12:30 | WPDANESEPPF ---
Anes - Initial Pre Proc Eval Procedure: Operation Date: 08/12/25 12:45 Proposed Procedures p Esophagogastroduodenoscopy EGD - Jd Richardson MD Date/Time: 08/12/25 12:30 Surgeon: Jd Richardson MD Pre Op Diagnosis: Dysphagia, unspecified, GERD Patient Data Age: 64 Gender: F Height: 1.55 m Weight: 50.8 kg Last Vital Signs Temp 36.6 C 08/12/25 11:38 Pulse 66 08/12/25 11:38 Resp 16 08/12/25 11:38 BP 127/54 L 08/12/25 11:38 Pulse Ox 98 08/12/25 11:38 O2 Del Method Room Air 08/12/25 11:38 Allergies Allergy/AdvReac Type Severity Reaction Status Date / Time No Known Allergies Allergy Verified 08/12/25 11:37 Home Medications ?Medication ?Instructions ?Recorded ?Confirmed ?Type alendronate 70 mg tablet 70 mg PO WEEKLY 06/06/25 08/12/25 History ciclopirox 8 % topical solution 1 applic topical QHS 06/06/25 08/12/25 History ergocalciferol (vitamin D2) 50,000 50,000 unit PO WEEKLY 06/06/25 08/12/25 History unit tablet famotidine 40 mg tablet 40 mg PO DAILY 06/06/25 07/30/25 History omeprazole 40 mg capsule,delayed 40 mg PO DAILY 06/06/25 08/12/25 History release aspirin 81 mg tablet,delayed 81 mg PO DAILY PRN pain 08/12/25 08/12/25 History release (Adult Aspirin Regimen) Patient hx anesthesia problems: none Family hx anesthesia problems: none Results Review: All pre-operative results and documents have been reviewed as part of the pre-operative evaluation. [facility] Past Medical History Medical History Encounter for screening colonoscopy Tobacco use GERD (gastroesophageal reflux disease) Left foot pain Thyroid function test abnormal Dysphagia Osteoarthritis Chronic constipation Ptosis of eyelid Vitamin D deficiency Family History Family History Mother Arthritis Father Chronic obstructive pulmonary disease Social History Social History Smoking status: Current every day smoker Tobacco type: cigarettes Alcohol intake: never Substance use: never Substance use type: does not use Anes - Eval Final PreProcedure Day of Procedure 08/12/25 12:30 Patient weight: normal Heart: regular rate and rhythm Lungs: decreased breath sounds Airway: Mallampati scale class II Neurological: alert and oriented Last oral intake: >/= 8 hours ASA classification: III Emergent: no Anesthetic plan: proceed Anesthesia type and monitoring: general GIVS and standard monitoring Results Review: All pre-operative results and documents have been reviewed as part of the pre-operative evaluation. Informed Consent: The patient's anesthetic plan and its attendant risks and benefits were discussed with the patient/family/POA. Questions were solicited and answers provided to the satisfaction of the patient/family/POA.
--- NOTE | 2025-08-12 13:08 | PM.HPGS ---
History of Present Illness History of Present Illness Consent: Risks, benefits, and alternatives have been discussed and questions answered. Patient agrees to proceed with procedure. Chief complaint: Dysphagia, unspecified, GERD Narrative: Divya Ennis is a 64 year old female here for first EGD, h/o GERD on ppi Review of Systems Review of Systems: All systems reviewed & are unremarkable except as noted in HPI and below PMFSH Past Medical History Medical History Encounter for screening colonoscopy Tobacco use GERD (gastroesophageal reflux disease) Left foot pain Thyroid function test abnormal Dysphagia Osteoarthritis Chronic constipation Ptosis of eyelid Vitamin D deficiency Family History Family History Mother Arthritis Father Chronic obstructive pulmonary disease Social History Social History Smoking status: Current every day smoker Tobacco type: cigarettes Alcohol intake: never Substance use: never Substance use type: does not use Meds Home Medications and Allergies Home Medications ?Medication ?Instructions ?Recorded ?Confirmed ?Type alendronate 70 mg tablet 70 mg PO WEEKLY 06/06/25 08/12/25 History ciclopirox 8 % topical solution 1 applic topical QHS 06/06/25 08/12/25 History ergocalciferol (vitamin D2) 50,000 50,000 unit PO WEEKLY 06/06/25 08/12/25 History unit tablet famotidine 40 mg tablet 40 mg PO DAILY 06/06/25 07/30/25 History omeprazole 40 mg capsule,delayed 40 mg PO DAILY 06/06/25 08/12/25 History release aspirin 81 mg tablet,delayed 81 mg PO DAILY PRN pain 08/12/25 08/12/25 History release (Adult Aspirin Regimen) Allergies Allergy/AdvReac Type Severity Reaction Status Date / Time No Known Allergies Allergy Verified 08/12/25 11:37 Vital Signs Vital Signs - 24 hr 08/12/25 11:38 Temperature 97.8 F Pulse Rate 66 Respiratory Rate 16 Blood Pressure 127/54 L Pulse Oximetry 98 Oxygen Delivery Room Air Exam Const: General: comfortable and no acute distress HENMT: Face/Nose/Sinus: Normal nares present Eyes: General: appearance normal, both eyes and all related structures Resp: Auscultation: clear to auscultation bilaterally Cardio: Rate: regular rate Rhythm: regular rhythm GI: Inspection: non-distended GI Palp: Yes Soft to palpation Skin: General skin exam: normal color Extrem: General: normal to inspection Psych: Mental Status: mental status grossly normal Assessment and Plan Assessment and plan (1) GERD (gastroesophageal reflux disease): Code(s): K21.9 - Gastro-esophageal reflux disease without esophagitis Status: Acute Assessment and Plan: egd with bx on ppi
--- NOTE | 2025-08-12 13:18 | S_PTH ---
PATIENT: Divya Ennis LOC: [facility]#:[id number] AGE/SX: 64/F ROOM: RE08/12/[address]: Jd Richardson MD : [id number] BED: DIS: 08/12/2025 SPEC #: [id number] RECD: 08/12/25 14:12 STATUS: YAYA REDebra #: [id number] LISA: 08/12/25 13:[address]: Jd Richardson DEPT: [facility] Surgical RECD BY: Kerry Lacy ENTERED: 08/12/25 14:13 SP TYPE: Surgical OTHR DR: Shira Hernandez, TABLE WORKER Tissues: A - Gastric Biopsy B - Esophageal Biopsy Procedures: Hematoxylin and Eosin Stain Gross and Microscopic Level 4
[2025-08-12 13:22] VITALS: BP 120/67; PULSE 84; RESP 15; O2SAT 96
[2025-08-12 13:32] VITALS: BP 120/69; PULSE 83; RESP 16; O2SAT 92
[2025-08-12 13:42] VITALS: BP 136/78; PULSE 79; RESP 12; O2SAT 93
== END 2025-08-12 13:44 | disposition home or self-care (01) ==
PROVIDERS: PCP Nurse Practitioner Family; Referring Provider Nurse Practitioner Family; Visit Provider Internal Medicine Gastroenterology
PROC: 0DJ08ZZ Inspection of Upper Intestinal Tract, Via Natural or Artificial Opening Endoscopic (ICD-10-PCS; CPT 43239; principal; 2025-08-12 12:45)
DX: K21.00 Gastro-esophageal reflux disease with esophagitis, without bleeding (principal); K44.9 Diaphragmatic hernia without obstruction or gangrene; K59.09 Other constipation; E55.9 Vitamin D deficiency, unspecified; M19.90 Unspecified osteoarthritis, unspecified site; F17.210 Nicotine dependence, cigarettes, uncomplicated; Z79.83 Long term (current) use of bisphosphonates; Z79.82 Long term (current) use of aspirin
CPT/HCPCS: 43239; 88305; J2003; J2704; J7120